=== PATIENT | male | born 1955 | race Caucasian/White ===

== ENCOUNTER 2016-10-15 07:16 | Inpatient (IN) | payer SELFPAY ==
[2016-10-15] VITALS (13 sets, daily range): BP systolic 114–154; BP diastolic 68–87; PULSE 64–101; RESP 15–20; TEMP 97.9–98.2; O2SAT 96–100
[~2016-10-15] VITALS: Ht 198.1 cm; Wt 82.0 kg
[~2016-10-15 07:16] MED LIST: AMIO200T PO; APIX5TAB PO; FURO1TAB93 PO; HYDR-3129 PO; METO50TA PO; RAMI2.5C29 PO; SYMB160A INH; TIOT18I INH
[2016-10-15] MEDS ORDERED: APIX5TAB PO (07:41)
[2016-10-15] MEDS ORDERED: DIGO0.12 PO (07:41)
[2016-10-15] MEDS ORDERED: FURO1TAB60 PO (07:41)
[2016-10-15] MEDS ORDERED: RAMI2.5C PO (07:41)
[2016-10-15] MEDS ORDERED: METO100T PO (07:41)
[2016-10-15] MEDS ORDERED: ASPI325T PO (07:41)
[2016-10-15] MEDS ORDERED: SODIUM CHLORIDE 0.9% FLUSH 10 ML FLUSH IVF PRN (07:45)
--- NOTE | 2016-10-15 08:07 | RADRPT ---
EXAM DATE/TIME: 10/15/2016 07:43 [place] COMPARISON: CHEST SINGLE AP, January 12, 2014, 13:33. INDICATIONS : Heart paplpitations for 3 days. Minor left chest pain. MEDICAL HISTORY : Cardiovascular disease. SURGICAL HISTORY : Defibrilator. ENCOUNTER: Subsequent ACUITY: 3 days PAIN SCORE: 1/10 LOCATION: Left middle chest FINDINGS: There is a transvenous pacer in good position. The heart is normal in size. There are chronic appeari ng interstitial changes within the pulmonary parenchyma. The examination appears improved compared to previous date 01/12/14. The osseous structures demonstrate degenerative changes in a.c. joints bilaterally. CONCLUSION: 1. Chronic appearing interstitial changes. No acute abnormality. Jakob Aden MD on October 15, 2016 at 8:04 Board Certified Radiologist. This report was verified electronically.
[2016-10-15 08:16] LABS: AUTOMATED NEUTROPHIL # 4.6 TH/MM3 (1.8-7.7); BASOPHIL # 0.1 TH/MM3 (0-0.2); BASOPHIL % 1.1 % (0.0-2.0); EOSINOPHIL # 0.5 TH/MM3 (0-0.4); EOSINOPHIL % 6.8 % (0.0-4.0); HEMATOCRIT 41.8 % (39.0-51.0); HEMO FLAGS DIFF FINAL; LYMPH % 21.1 % (9.0-44.0); LYMPHOCYTE # 1.6 TH/MM3 (1.0-4.8); MEAN CELL VOLUME 96.7 FL (80.0-100.0); MEAN CORPUSCULAR HGB CONC 33.1 % (32.0-36.0); MONO % 10.6 % (0.0-8.0); NEUT % 60.4 % (16.0-70.0); PLATELET COUNT 198 TH/MM3 (150-450); RED BLOOD COUNT 4.32 MIL/MM3 (4.50-5.90); RED CELL DISTRIBUTION WIDTH 14.5 % (11.6-17.2); WHITE BLOOD COUNT 7.6 TH/MM3 (4.0-11.0)
[2016-10-15 08:34] LABS: ANION GAP 9 MEQ/L (5-15); BICARBONATE 24.8 MEQ/L (21.0-32.0); BLOOD UREA NITROGEN 23 MG/DL (7-18); CHLORIDE 99 MEQ/L (98-107); GLOMERULAR FILTRATION RATE 39 ML/MIN (>89); MAGNESIUM 2.3 MG/DL (1.5-2.5); POTASSIUM 4.3 MEQ/L (3.5-5.1); SODIUM (NA) 133 MEQ/L (136-145)
[2016-10-15 08:37] LABS: CREATINE KINASE 114 U/L (39-308)
[2016-10-15 08:41] LABS: APTT (PATIENT) 29.9 SEC (24.3-30.1); INTERNATIONAL NORMALIZED RATIO 0.9 RATIO
--- NOTE | 2016-10-15 09:20 | PD ---
HPI Chief Complaint: Cardiac Complaint Time Seen by Provider: 07:32 Travel History International Travel<30 days: No Contact w/Intl Traveler<30days: No Traveled to known affect area: No History of Present Illness HPI 60-year-old male came to the emergency room with history of palpitations and not feeling well for past 4-5 days. Patient says that he was trying to tolerate it up until last night when the symptoms got worse and that's when he decided to come to the emergency room this morning. He has history of atrial fibrillation and has an AICD put in [address] Broderick who follows him up for that. He saw him in the beginning of this month when everything was fine. Patient was started on digoxin and Eliquis in August. No history of chest pain. No history of shortness of breath. He does not appear to be in significant distress. However he does say that he is just not feeling well. He is a smoker and alcohol drinker. PFSH Past Medical History Narrative Medical List of his past medical, surgical, social and family history is reviewed from the nursing note. Hx Anticoagulant Therapy: Yes (ELIQUIS) Heart Rhythm Problems: Yes (A-FIB /A-FLUTTER ) Cancer: No Cardiovascular Problems: Yes Diminished Hearing: No Endocrine: No Genitourinary: No Immune Disorder: No Musculoskeletal: No Neurologic: No Psychiatric: No Reproductive: No Respiratory: No Tetanus Vaccination: Unknown Influenza Vaccination: No Past Surgical History Abdominal Surgery: Yes (appendectomy) AICD: No Appendectomy: Yes Arteriovenous Shunt: No Cardiac Surgery: Yes (CARDIAC ABLATION ) Ear Surgery: No Endocrine Surgery: No Eye Surgery: No Genitourinary Surgery: No Gynecologic Surgery: No Insulin Pump: No Joint Replacement: No Oral Surgery: No Pacemaker: No Thoracic Surgery: No Social History Alcohol Use: Yes Tobacco Use: Yes (1/2 PPD ) Substance Use: Yes (POT ) Allergies-Medications (Allergen,Severity, Reaction): Coded Allergies: No Known Allergies (Unverified , 10/15/16) Comments No known drug allergies. Reported Meds & Prescriptions Reported Meds & Active Scripts Active Reported Digoxin 0.125 Mg Tab 0.125 Mg PO DAILY Ramipril 2.5 Mg Cap 2.5 Mg PO DAILY Metoprolol Tartrate 100 Mg Tab 100 Mg PO BID Lasix (Furosemide) 40 Mg Tab 40 Mg PO BID Eliquis (Apixaban) 5 Mg Tab 5 Mg PO BID Aspirin 325 Mg Tab 325 Mg PO DAILY Narrative Medication List of his home medications reviewed from the nursing note. Review of Systems Except as stated in HPI: all other systems reviewed are Neg Physical Exam Narrative GENERAL: [-] SKIN: Focused skin assessment warm/dry. HEAD: Atraumatic. Normocephalic. EYES: Pupils equal and round. No scleral icterus. No injection or drainage. ENT: No nasal bleeding or discharge. Mucous membranes pink and moist. NECK: Trachea midline. No JVD. CARDIOVASCULAR: Irregularly irregular rate and rhythm. No murmur appreciated. RESPIRATORY: No accessory muscle use. Clear to auscultation. Breath sounds equal bilaterally. GASTROINTESTINAL: Abdomen soft, non-tender, nondistended. Hepatic and splenic margins not palpable. MUSCULOSKELETAL: No obvious deformities. No clubbing. No cyanosis. No edema. NEUROLOGICAL: Awake and alert. No obvious cranial nerve deficits. Motor grossly within normal limits. Normal speech. PSYCHIATRIC: Appropriate mood and affect; insight and judgment normal. Data Data Last Documented VS Vital Signs Date Time Temp Pulse Resp B/P (MAP) Pulse Ox O2 Delivery O2 Flow Rate FiO2 10/15/16 08:45 72 18 123/68 (86) 100 Nasal Cannula 2.00 10/15/16 07:19 97.9 Orders Orders Electrocardiogram (10/15/16 07:32) Basic Metabolic Panel (Bmp) (10/15/16 07:32) Ckmb (Isoenzyme) Profile (10/15/16 07:32) Complete Blood Count With Diff (10/15/16 07:32) Magnesium (Mg) (10/15/16 07:32) Prothrombin Time / Inr (Pt) (10/15/16 07:32) Act Partial Throm Time (Ptt) (10/15/16 07:32) Troponin I (10/15/16 07:32) Chest, Single Ap (10/15/16 07:32) Ecg Monitoring (10/15/16 07:32) Bilateral Bp Monitoring (10/15/16 07:32) Iv Access Insert/Monitor (10/15/16 07:32) Oximetry (10/15/16 07:32) Oxygen Administration (10/15/16 07:32) Sodium Chloride 0.9% Flush (Ns Flush) (10/15/16 07:45) Digoxin (10/15/16 07:40) CKMB (10/15/16 07:35) CKMB% (10/15/16 07:35) Consult Cardiology (10/15/16 ) Admit Order (Ed Use Only) (10/15/16 09:32) Labs Laboratory Tests Test 10/15/16 07:32 10/15/16 07:35 White Blood Count 7.6 TH/MM3 Red Blood Count 4.32 MIL/MM3 Hemoglobin 13.8 GM/DL Hematocrit 41.8 % Mean Corpuscular Volume 96.7 FL Mean Corpuscular Hemoglobin 32.0 PG Mean Corpuscular Hemoglobin Concent 33.1 % Red Cell Distribution Width 14.5 % Platelet Count 198 TH/MM3 Mean Platelet Volume 7.2 FL Neutrophils (%) (Auto) 60.4 % Lymphocytes (%) (Auto) 21.1 % Monocytes (%) (Auto) 10.6 % Eosinophils (%) (Auto) 6.8 % Basophils (%) (Auto) 1.1 % Neutrophils # (Auto) 4.6 TH/MM3 Lymphocytes # (Auto) 1.6 TH/MM3 Monocytes # (Auto) 0.8 TH/MM3 Eosinophils # (Auto) 0.5 TH/MM3 Basophils # (Auto) 0.1 TH/MM3 CBC Comment DIFF FINAL Differential Comment Prothrombin Time 10.0 SEC Prothromb Time International Ratio 0.9 RATIO Activated Partial Thromboplast Time 29.9 SEC Blood Urea Nitrogen 23 MG/DL Creatinine 1.81 MG/DL Random Glucose 81 MG/DL Calcium Level 8.9 MG/DL Magnesium Level 2.3 MG/DL Sodium Level 133 MEQ/L Potassium Level 4.3 MEQ/L Chloride Level 99 MEQ/L Carbon Dioxide Level 24.8 MEQ/L Anion Gap 9 MEQ/L Estimat Glomerular Filtration Rate 39 ML/MIN Total Creatine Kinase 114 U/L Creatine Kinase MB 3.0 NG/ML Troponin I LESS THAN 0.02 NG/ML Digoxin Level 1.3 NG/ML [facility] Medical Decision Making Medical Screen Exam Complete: Yes Emergency Medical Condition: Yes Medical Record Reviewed: Yes Interpretation(s) Twelve-lead EKG was reviewed by me. Atrial fibrillation with flutter, normal axis, old anterior OR. Heart rate of 78 bpm. Differential Diagnosis Electrolyte abnormality, congestive heart failure, ACS Narrative Course 9:29 AM blood test results of back and they are within acceptable limit except for the creatinine which is elevated. I discussed with Dr. Broderick who has agreed to admit the patient. He'll consult on the patient. In my opinion patient needs his device to be interrogated to see if he was having any V. tach or A. fib with RVR. I let the patient know about the plan and he is agreeable to it. Procedures EKG Prior to Arrival: Yes Physician Communication Physician Communication Dr. Broderick Diagnosis Primary Impression: Palpitations Additional Impressions: Atrial fibrillation and flutter Generalized weakness Admitting Information Admitting Physician Requests: Observation Osorio Cavazos MD Oct 15, 2016 09:20
--- NOTE | 2016-10-15 10:22 | HHI.HP ---
HPI Service Family Medicine Primary Care Physician No Primary Care Physician Admission Diagnosis generalized weakness, A. fib with flutter, palpitation Diagnoses: Chief Complaint: "Heart's been acting kind of crazy" International Travel<30 Days: No Contact w/Intl Traveler<30days: No Known Affected Area: No History of Present Illness Mr. Ngo is a 60-year-old white male with a past medical history of atrial fibrillation presenting to the ED for heart palpitations. He states that a few days ago his heart started racing and skipping a beat. He also started feeling run down and not like himself. He felt like he had a cold. Last night his still comes had gotten worse. He felt like his heart was racing on and off. He states that he is used to his heart beating funny, but this felt different. Therefore, he decided to come to the ED. He experienced this type of heart problem back in August when he was hyponatremic. He visited his combination saw operator, Dr. Broderick, who put him on digoxin and Eliquis. He was initially diagnosed with atrial fibrillation 3 years ago and had an ablation done. They also implanted a defibrillator. His defibrillator has never gone off. No prior MIs. No CP, no SOB, has been feeling fatigued, no loss of appetite. No fever/chills (Noemi Valero MD R1) Review of Systems Constitutional: DENIES: Weight loss, Change in appetite, Night Sweats Eyes: DENIES: Blurred vision Ears, nose, mouth, throat: DENIES: Vertigo Respiratory: DENIES: Shortness of breath Cardiovascular: DENIES: Chest pain Gastrointestinal: DENIES: Abdominal pain, Black stools, Bloody stools Genitourinary: DENIES: Urinary frequency, Urgency Musculoskeletal: DENIES: Joint pain, Muscle aches Integumentary: DENIES: Rash Immunologic/allergic: DENIES: Eczema Neurologic: DENIES: Localized weakness, Paresthesias Psychiatric: DENIES: Depression, Hallucinations (Noemi Valero MD R1) Past Family Social History Past Medical History Atrial fibrillation- diagnosed 3 years ago Past Surgical History Ablation and AICD-3 years ago knee surgery appendectomy Reported Medications Reported Meds & Active Scripts Active Reported Digoxin 0.125 Mg Tab 0.125 Mg PO DAILY Ramipril 2.5 Mg Cap 2.5 Mg PO DAILY Metoprolol Tartrate 100 Mg Tab 100 Mg PO BID Lasix (Furosemide) 40 Mg Tab 40 Mg PO BID Eliquis (Apixaban) 5 Mg Tab 5 Mg PO BID Aspirin 325 Mg Tab 325 Mg PO DAILY (Noemi Valero MD R1) Allergies: Coded Allergies: No Known Allergies (Unverified , 10/15/16) Active Ordered Medications Current Medications Medications (Trade) Dose Ordered Sig/Mishel Route Start Time Stop Time Status Last Admin (NS Flush) 2 ml UNSCH PRN IVF 10/15/16 07:45 Family History Mother- HTN Father- HTN Older brother- quadruple bypass Social History lives in [place] with girlfriend Employment: purchaser automotive parts Alcohol: 3-4 beers a day, thought about cutting down, no withdrawal before Cigarettes: 1/2 ppd for 40 yrs, thought about quitting Drugs: smokes marijuana occasionally (Noemi Valero MD R1) Physical Exam Vital Signs Vital Signs Date Time Temp Pulse Resp B/P (MAP) Pulse Ox O2 Delivery O2 Flow Rate FiO2 10/15/16 07:45 67 17 126/79 (95) 100 Nasal Cannula 2.00 10/15/16 07:44 76 126/79 (95) 10/15/16 07:44 98 Nasal Cannula 2.00 10/15/16 07:24 149/87 (107) 10/15/16 07:24 80 15 149/87 (107) 98 Room Air 10/15/16 07:19 97.9 84 15 154/74 (100) 98 Physical Exam GENERAL: This is a well-nourished, well-developed patient, laying in bed, in no apparent distress. SKIN: No rashes, ecchymoses or lesions. Cool and dry. HEAD: Atraumatic. Normocephalic. No temporal or scalp tenderness. EYES: Pupils equal round and reactive. Extraocular motions intact. No scleral icterus. No injection or drainage. ENT: Nose without bleeding, purulent drainage or septal hematoma. Throat without erythema, tonsillar hypertrophy or exudate. Uvula midline. Airway patent. NECK: Trachea midline. No JVD or lymphadenopathy. Supple, nontender, no meningeal signs. CARDIOVASCULAR: Irregular rate and rhythm without murmurs, gallops, or rubs. RESPIRATORY: Expiratory wheezing. Breath sounds equal bilaterally. No rales, or rhonchi. GASTROINTESTINAL: Abdomen soft, non-tender, nondistended. No hepato-splenomegaly , or palpable masses. No guarding. MUSCULOSKELETAL: Extremities without clubbing, cyanosis, or edema. No joint tenderness, effusion, or edema noted. No calf tenderness. Negative Homans sign bilaterally. NEUROLOGICAL: Awake and alert. Cranial nerves II through XII intact. Motor and sensory grossly within normal limits. Five out of 5 muscle strength in all muscle groups. Normal speech. Laboratory Laboratory Tests Test 10/15/16 07:32 10/15/16 07:35 White Blood Count 7.6 Red Blood Count 4.32 Hemoglobin 13.8 Hematocrit 41.8 Mean Corpuscular Volume 96.7 Mean Corpuscular Hemoglobin 32.0 Mean Corpuscular Hemoglobin Concent 33.1 Red Cell Distribution Width 14.5 Platelet Count 198 Mean Platelet Volume 7.2 Neutrophils (%) (Auto) 60.4 Lymphocytes (%) (Auto) 21.1 Monocytes (%) (Auto) 10.6 Eosinophils (%) (Auto) 6.8 Basophils (%) (Auto) 1.1 Neutrophils # (Auto) 4.6 Lymphocytes # (Auto) 1.6 Monocytes # (Auto) 0.8 Eosinophils # (Auto) 0.5 Basophils # (Auto) 0.1 CBC Comment DIFF FINAL Differential Comment Prothrombin Time 10.0 Prothromb Time International Ratio 0.9 Activated Partial Thromboplast Time 29.9 Blood Urea Nitrogen 23 Creatinine 1.81 Random Glucose 81 Calcium Level 8.9 Magnesium Level 2.3 Sodium Level 133 Potassium Level 4.3 Chloride Level 99 Carbon Dioxide Level 24.8 Anion Gap 9 Estimat Glomerular Filtration Rate 39 Total Creatine Kinase 114 Creatine Kinase MB 3.0 Troponin I LESS THAN 0.02 Digoxin Level 1.3 (Noemi Valero MD R1) Result Diagram: 10/15/16 0732 10/15/16 0735 Caprini VTE Risk Assessment Caprini VTE Risk Assessment: No/Low Risk (score <= 1) Caprini Risk Assessment Model Point Value = 1 Point Value = 2 Point Value = 3 Point Value = 5 Age 41-60 Minor surgery BMI > 25 kg/m2 Swollen legs Varicose veins or History of unexplained or recurrent spontaneous Oral contraceptives or hormone replacement Sepsis (< 1 month) Serious lung disease, including pneumonia (< 1 month) Abnormal pulmonary function Acute myocardial infarction Congestive heart failure (< 1 month) History of inflammatory bowel disease Medical patient at bed rest Age 61-74 Arthroscopic surgery Major open surgery (> 45 min) Laparoscopic surgery (> 45 min) Malignancy Confined to bed (> 72 hours) Immobilizing plaster cast Central venous access Age >= 75 History of VTE Family history of VTE Factor V Leiden Prothrombin [id number] Lupus anticoagulant Anticardiolipin antibodies Elevated serum homocysteine Heparin-induced thrombocytopenia Other congenital or acquired thrombophilia Stroke (< 1 month) Elective arthroplasty Hip, pelvis, or leg fracture Acute spinal cord injury (< 1 month) Prophylaxis Regimen Total Risk Factor Score Risk Level Prophylaxis Regimen 0-1 Low Early ambulation 2 Moderate Order ONE of the following: *Sequential Compression Device (SCD) *Heparin 5000 units SQ BID 3-4 Higher Order ONE of the following medications: *Heparin 5000 units SQ TID *Enoxaparin/Lovenox 40 mg SQ daily (WT < 150 kg, CrCl > 30 mL/min) *Enoxaparin/Lovenox 30 mg SQ daily (WT < 150 kg, CrCl > 10-29 mL/min) *Enoxaparin/Lovenox 30 mg SQ BID (WT < 150 kg, CrCl > 30 mL/min) AND/OR *Sequential Compression Device (SCD) 5 or more Highest Order ONE of the following medications: *Heparin 5000 units SQ TID (Preferred with Epidurals) *Enoxaparin/Lovenox 40 mg SQ daily (WT < 150 kg, CrCl > 30 mL/min) *Enoxaparin/Lovenox 30 mg SQ daily (WT < 150 kg, CrCl > 10-29 mL/min) *Enoxaparin/Lovenox 30 mg SQ BID (WT < 150 kg, CrCl > 30 mL/min) AND *Sequential Compression Device (SCD) (Noemi Valero MD R1) Assessment and Plan Assessment and Plan Mr. Ngo is a 60-year-old white male with a past medical history of atrial fibrillation presenting to the ED for heart palpitations. EKG done in the ED showed atrial fibrillation with flutter with a heart rate of 78 bpm. Admitting for observation. Code Status Full code Discussed Condition With Dr. Sequeira and Dr. Soto (Noemi Valero MD R1) Attending Attestation The patient has been seen and examined. The chart and all resident notes have been reviewed. I agree that inpatient care is appropriate and that a two midnight stay is expected for the reasons documented in the resident history and physical. I have discussed this with the resident and certify the resident s order for inpatient admission. (Leanna Soto MD) Problem List: (1) Atrial fibrillation and flutter ICD Codes: I48.91 - Unspecified atrial fibrillation; I48.92 - Unspecified atrial flutter Status: Acute Plan: EKG and ED showed atrial fibrillation with flutter, rate of 78 bpm -Pacemaker investigation -Consult cardiology, appreciate recommendations -Continue at home digoxin 0.125 mg by mouth daily -Continue at home metoprolol 100 mg by mouth twice a day -Continue at home aspirin 325 mg by mouth daily -Held at home Eliquis (2) CHF (congestive heart failure) ICD Codes: I50.9 - CHF (congestive heart failure) Status: Chronic Plan: -Continue at home Ramipril 2.5 mg by mouth daily -Hold at home furosemide (3) Chronic kidney disease ICD Codes: N18.9 - Chronic kidney disease, unspecified Status: Chronic Plan: BUN and Creatinine elevated on admission. GFR 39. Documented at Stage 3 since 12/2013. -Hold Lasix (4) FEN Status: Acute Plan: Fluids: Oral hydration Electrolytes: Monitor and replete as needed Nutrition: Heart healthy diet DVT prophylaxis: SCDs Pain management: Tylenol as needed (Noemi Valero MD R1) Physician Certification 2 Midnight Certification Type: Admission for Inpatient Services Order for Inpatient Services The services are ordered in accordance with Medicare regulations or non- Medicare payer requirements, as applicable. In the case of services not specified as inpatient-only, they are appropriately provided as inpatient services in accordance with the 2-midnight benchmark. Estimated LOS (days): 2 days is the estimated time the patient will need to remain in the hospital, assuming treatment plan goals are met and no additional complications. Post-Hospital Plan: Home (Noemi Valero MD R1) Problem Qualifiers (1) CHF (congestive heart failure): Qualified Codes: I50.9 - Heart failure, unspecified (2) Chronic kidney disease: Qualified Codes: N18.3 - Chronic kidney disease, stage 3 (moderate) Noemi Valero MD R1 Oct 15, 2016 10:22 Leanna Soto MD Oct 19, 2016 08:50
[2016-10-15] MEDS ORDERED: ACETAMINOPHEN 325 MG TAB PO PRN (10:30)
[2016-10-15] MEDS ORDERED: SODIUM CHLORIDE 0.9% FLUSH 10 ML FLUSH IV FLUSH PRN (10:30)
[2016-10-15] MEDS ORDERED: ONDANSETRON HCL 4 MG/2 ML VIAL IV PRN (10:30)
[2016-10-15] MEDS ORDERED: RESP: ALBUTEROL 2.5 MG/3 ML NEB (PRN) NEB (10:45)
--- NOTE | 2016-10-15 11:06 | EKG ---
Date Performed: 10/15/2016 Time Performed: 07:29:19 PTAGE: 60 years EKG: ATRIAL FLUTTER/TACHYCARDIA ABNORMAL RHYTHM ECG PREVIOUS TRACING : 01/13/2014 05.30 Compared to previous tracing, atrial tachycardia has replac ed Sinus rhythm , T wave inversion in V1 and V2 is no longer evident. DOCTOR: Rebel Ye Interpretating Date/Time 10/15/2016 11:05:35
[2016-10-15] MEDS: RESP: ALBUTEROL 2.5 MG/IPRATROPIUM 0.5 MG NEB (SCH) NEB ×2 (12:00→19:36)
[2016-10-15] MEDS ORDERED: FUROSEMIDE 40 MG TAB PO SCH (21:00)
[2016-10-15 21:11] LABS: HDL CHOLESTEROL 99.3 MG/DL (40.0-60.0); LDL CHOLESTEROL 27 MG/DL (0-99)
[2016-10-15] MEDS: METOPROLOL TARTRATE 100 MG TAB PO SCH (21:36)
[2016-10-15] MEDS: SODIUM CHLORIDE 0.9% FLUSH 10 ML FLUSH IV FLUSH SCH (21:36)
--- NOTE | 2016-10-15 21:58 | HHI.FPPN ---
Subjective Subjective Patient seen and examined. Case reviewed and discussed Please refer to resident H&P for further details regarding HPI, ROS, PMH, SurgHx , FH and SocHx In summary, patient is a 60yoM with chronic afib s/p PM placement by Dr. Broderick in 2013 Patient reports he was in his usual state of health when he noted progressive fatigue and palpitations over the last 4 days He was prompted to come to the ED when this continued to worsen He denies chest pain or shortness of breath in the ED Family is at the bedside [facility] Objective Objective Last Impressions Chest X-Ray 10/15/16 0732 Signed Impressions: Service Date/Time: , October 15, 2016 07:43 - CONCLUSION: 1. Chronic appearing interstitial changes. No acute abnormality. Jakob Aden MD Laboratory Tests - Abnormals Test 10/15/16 07:32 10/15/16 07:35 10/15/16 14:44 10/15/16 20:13 Red Blood Count 4.32 MIL/MM3 Monocytes (%) (Auto) 10.6 % Eosinophils (%) (Auto) 6.8 % Eosinophils # (Auto) 0.5 TH/MM3 Blood Urea Nitrogen 23 MG/DL Creatinine 1.81 MG/DL Sodium Level 133 MEQ/L Estimat Glomerular Filtration Rate 39 ML/MIN Troponin I LESS THAN 0.02 NG/ML LESS THAN 0.02 NG/ML LESS THAN 0.02 NG/ML HDL Cholesterol 99.3 MG/DL Vital Signs 10/15/16 10/15/16 10/15/16 10/15/16 07:19 07:24 07:24 07:25 Temp 97.9 Pulse 84 80 Resp 15 15 B/P (MAP) 154/74 (100) 149/87 (107) 149/87 (107) Pulse Ox 98 98 O2 Delivery Room Air Room Air 10/15/16 10/15/16 10/15/16 10/15/16 07:44 07:44 07:45 08:45 Pulse 76 67 72 Resp 17 18 B/P (MAP) 126/79 (95) 126/79 (95) 123/68 (86) Pulse Ox 98 100 100 O2 Delivery Nasal Cannula Nasal Cannula Nasal Cannula O2 Flow Rate 2.00 2.00 2.00 10/15/16 10/15/16 10/15/16 10/15/16 09:45 13:05 13:40 16:05 Temp 98.2 98.2 Pulse 66 64 69 69 Resp 20 19 18 B/P (MAP) 132/71 (91) 121/68 (85) 117/72 (87) Pulse Ox 100 97 O2 Delivery Nasal Cannula O2 Flow Rate 2.00 10/15/16 10/15/16 10/15/16 16:10 19:39 21:08 Temp 98.2 Pulse 69 101 Resp 18 B/P (MAP) 114/71 (85) Pulse Ox 96 96 Physical exam GENERAL: Thin male, sitting up in bed SKIN: Warm and dry. No rashes HEAD: Normocephalic. AT EYES: No scleral icterus. No injection or drainage. ENT: OP clear. MM slightly dry NECK: Supple, trachea midline. No JVD or lymphadenopathy. CARDIOVASCULAR: Irregularly irregular rhythm, rate controlled, without murmurs, gallops, or rubs. PM over anterior chest, no erythema. RESPIRATORY: Breath sounds equal bilaterally there is bibasilar crackles, prolonged expiration. No accessory muscle use. GASTROINTESTINAL: Abdomen soft, non-tender, nondistended. Normal active BS. No rebound. MUSCULOSKELETAL: No cyanosis, or edema. No calf tenderness. BACK: Nontender without obvious deformity. No CVA tenderness. NEURO: Awake and alert. Normal speech. CN grossly intact. MAEW Assessment Assessment 60yoM admitted with: Weakness, palpitations with hx ICD placement Acute on chronic kidney disease Tobacco use HTN COPD PLAN PLAN Device Interrogation ED physician spoke with Dr. Broderick, will place consult for expertise Trend Cr, BMP TSH, electrolytes 2 echo ACS r/o Counseled on tobacco use Breathing tx Resume home meds as appropriate CIWA PT Patient seen and examined. Case reviewed and discussed Agree with plan of care as discussed with me and documented in the resident note. Leanna Soto MD Oct 15, 2016 21:58
[2016-10-16] VITALS (13 sets, daily range): BP systolic 108–130; BP diastolic 55–96; PULSE 61–125; RESP 14–18; TEMP 97.8–98.6; O2SAT 96–98
[2016-10-16] MEDS: RESP: ALBUTEROL 2.5 MG/IPRATROPIUM 0.5 MG NEB (SCH) NEB ×4 (08:07→19:44)
[2016-10-16] MEDS ORDERED: ASPIRIN 325 MG TAB PO SCH (09:00)
[2016-10-16] MEDS: DIGOXIN 0.125 MG TAB PO SCH (09:24)
[2016-10-16] MEDS: RAMIPRIL 2.5 MG CAP PO SCH (09:24)
[2016-10-16] MEDS: METOPROLOL TARTRATE 100 MG TAB PO SCH ×2 (09:24→21:39)
[2016-10-16] MEDS: SODIUM CHLORIDE 0.9% FLUSH 10 ML FLUSH IV FLUSH SCH ×2 (09:24→21:39)
--- NOTE | 2016-10-16 10:55 | HHI.FPPN ---
Subjective Remarks Patient states that he is doing well this morning. He had just gotten his AICD investigation. He said that the investigation and the tests made him feel antsy. He is still feeling palpitations. However, no chest pain, no shortness of breath, no abdominal pain, no nausea or vomiting, no fever or chills. He refused labs this morning. (Noemi Valero MD R1) Objective Vitals Vital Signs Date Time Temp Pulse Resp B/P (MAP) Pulse Ox O2 Delivery O2 Flow Rate FiO2 10/16/16 08:39 98.3 104 16 130/96 (107) 96 10/16/16 08:10 97 21 10/16/16 04:17 75 10/16/16 03:16 98.4 98 18 115/70 (85) 98 10/16/16 00:00 61 10/15/16 21:08 98.2 101 18 114/71 (85) 96 10/15/16 20:05 85 10/15/16 19:39 96 10/15/16 16:10 69 10/15/16 16:05 98.2 69 18 117/72 (87) 97 10/15/16 13:40 98.2 69 19 121/68 (85) 10/15/16 13:05 64 (Noemi Valero MD R1) Result Diagram: 10/15/16 0732 10/15/16 0735 Imaging Last Impressions Chest X-Ray 10/15/16 0732 Signed Impressions: Service Date/Time: September 07:43 - CONCLUSION: 1. Chronic appearing interstitial changes. No acute abnormality. Jakob Aden MD Objective Remarks GENERAL: Well-nourished, well-developed patient. Laying in bed SKIN: Warm and dry. HEAD: Normocephalic. EYES: No scleral icterus. No injection or drainage. CARDIOVASCULAR: Irregular rate and rhythm without murmurs, gallops, or rubs. RESPIRATORY: Breath sounds equal bilaterally. No accessory muscle use. Course breath sounds. Soft wheezes diffusely. GASTROINTESTINAL: Abdomen soft, non-tender, nondistended. EXTREMITIES: No cyanosis, or edema. NEUROLOGICAL: Awake, alert. Non-focal. (Noemi Valero MD R1) A/P Assessment and Plan Mr. Ngo is a 60-year-old white male with a past medical history of atrial fibrillation presenting to the ED for heart palpitations. EKG done in the ED showed atrial fibrillation with flutter with a heart rate of 78 bpm. Admitting for observation. (Noemi Valero MD R1) Attending Attestation Patient seen and examined. Case reviewed and discussed Agree with plan of care as discussed with me and documented in the resident note. (Leanna Soto MD) Problem List: (1) Atrial fibrillation and flutter ICD Codes: I48.91 - Unspecified atrial fibrillation; I48.92 - Unspecified atrial flutter Status: Acute Plan: EKG and ED showed atrial fibrillation with flutter, rate of 78 bpm. Troponins negative x3 -AICD investigation showed no abnormalities -Consult cardiology, appreciate recommendations -Continue at home digoxin 0.125 mg by mouth daily -Continue at home metoprolol 100 mg by mouth twice a day -Continue at home aspirin 325 mg by mouth daily -Held at home Eliquis (2) CHF (congestive heart failure) ICD Codes: I50.9 - CHF (congestive heart failure) Status: Chronic Plan: -Continue at home Ramipril 2.5 mg by mouth daily -Hold at home furosemide (3) Chronic kidney disease ICD Codes: N18.9 - Chronic kidney disease, unspecified Status: Chronic Plan: BUN and Creatinine elevated on admission. GFR 39. Documented at Stage 3 since 12/2013. -Restart Lasix- EF low on previous echo. Needed for CHF (4) FEN Status: Acute Plan: Fluids: Oral hydration Electrolytes: Monitor and replete as needed Nutrition: NPO since midnight DVT prophylaxis: SCDs Pain management: Tylenol as needed (Noemi Valero MD R1) Problem Qualifiers (1) CHF (congestive heart failure): Qualified Codes: I50.9 - Heart failure, unspecified (2) Chronic kidney disease: Qualified Codes: N18.3 - Chronic kidney disease, stage 3 (moderate) Noemi Valero MD R1 Oct 16, 2016 10:55 Leanna Soto MD Oct 19, 2016 08:52
--- NOTE | 2016-10-16 11:48 | EKG ---
Date Performed: 10/15/2016 Time Performed: 19:52:01 PTAGE: 60 years EKG: ATRIAL FLUTTER/TACHYCARDIA ABNORMAL RHYTHM ECG Compared to prior tracing no significant sean nge PREVIOUS TRACING : 10/15/2016 13.45 DOCTOR: Amado Naqvi Interpretating Date/Time 10/16/2016 11:44:03
--- NOTE | 2016-10-16 11:49 | EKG ---
Date Performed: 10/15/2016 Time Performed: 13:45:37 PTAGE: 60 years EKG: ATRIAL FLUTTER/TACHYCARDIA ABNORMAL RHYTHM ECG Compared to prior tracing no significant sean nge PREVIOUS TRACING : 10/15/2016 07.29 DOCTOR: Amado Naqvi Interpretating Date/Time 10/16/2016 11:44:12
[2016-10-16 12:26] LABS: AUTOMATED NEUTROPHIL # 4.9 TH/MM3 (1.8-7.7); BASOPHIL # 0.1 TH/MM3 (0-0.2); BASOPHIL % 0.9 % (0.0-2.0); EOSINOPHIL # 0.3 TH/MM3 (0-0.4); EOSINOPHIL % 4.3 % (0.0-4.0); HEMATOCRIT 42.7 % (39.0-51.0); HEMO FLAGS DIFF FINAL; LYMPH % 17.9 % (9.0-44.0); LYMPHOCYTE # 1.3 TH/MM3 (1.0-4.8); MEAN CELL VOLUME 98.3 FL (80.0-100.0); MEAN CORPUSCULAR HEMOGLOBIN 32.2 PG (27.0-34.0); MEAN CORPUSCULAR HGB CONC 32.7 % (32.0-36.0); MONO % 11.1 % (0.0-8.0); NEUT % 65.8 % (16.0-70.0); PLATELET COUNT 195 TH/MM3 (150-450); RED BLOOD COUNT 4.34 MIL/MM3 (4.50-5.90); RED CELL DISTRIBUTION WIDTH 14.5 % (11.6-17.2); WHITE BLOOD COUNT 7.5 TH/MM3 (4.0-11.0)
[2016-10-16 12:42] LABS: POTASSIUM 4.6 MEQ/L (3.5-5.1)
[2016-10-16 12:54] LABS: FREE T4 1.13 NG/DL (0.76-1.46)
--- NOTE | 2016-10-16 15:44 | ECHRPT ---
Indication: CONCLUSIONS Normal left ventricular size. Wall thickness is normal. The left ventricular systolic function is [id number]-[id number] reduced with an estimated ejection fra ction in the range of 35-40%. The right atrial size is mildly dilated. Echogenic linear structure in the RV suggestivet with a Pacemaker BP: 154 / 74 HR: 101 Rhythm: Sinus MEASUREMENTS (Male / Female) Normal Values Technical Quality:Good 2D ECHO LV Diastolic Diameter PLAX 4.6 cm 4.2 - 5.9 / 3.9 - 5.3 cm LV Systolic Diameter PLAX 3.5 cm IVS Diastolic Thickness 0.9 cm 0.6 - 1.0 / 0.6 - 0.9 cm LVPW Diastolic Thickness 0.8 cm 0.6 - 1.0 / 0.6 - 0.9 cm LV Relative Wall Thickness 0.4 RV Internal Dim ED PLAX 2.5 cm LA Systolic Diameter LX 3.2 cm 3.0 - 4.0 / 2.7 - 3.8 cm M-MODE Aortic Root Diameter MM 3.4 cm AV Cusp Separation MM 2.3 cm DOPPLER Mitral E Point Velocity 90.3 cm/s Mitral A Point Velocity 36.0 cm/s Mitral E to A Ratio 2.5 TR Peak Velocity 225.0 cm/s TR Peak Gradient 20.3 mmHg FINDINGS LEFT VENTRICLE Normal left ventricular size. Wall thickness is normal. The left ventricular systolic function is tgfpfgqd-ko-jwlcxcn reduced with an estimated ejection fra ction in the range of 35-40%. RIGHT VENTRICLE Normal right ventricular size and systolic function. LEFT ATRIUM The left atrial size is normal. RIGHT ATRIUM The right atrial size is mildly dilated. ATRIAL SEPTUM Normal atrial septal thickness without atrial level shunting by limited color doppler interrogation. AORTA The aortic root and proximal ascending aorta are normal in size on limited imaging. MITRAL VALVE Structurally normal mitral valve. No mitral valve stenosis or regurgitation. AORTIC VALVE Trileaflet aortic valve. No aortic valve stenosis or regurgitation. TRICUSPID VALVE Structurally normal tricuspid valve. No tricuspid valve stenosis or regurgitation. PULMONARY VALVE The pulmonary valve is not well visualized. VESSELS The inferior vena cava is normal in size. PERICARDIUM No pericardial effusion. Marco Layton MD (Electronically Signed) Final Date:16 October 2016 15:43
[2016-10-16] MEDS: APIXABAN 5 MG TABLET PO SCH ×2 (16:28→21:39)
[2016-10-16] MEDS: FUROSEMIDE 40 MG TAB PO SCH (21:39)
[2016-10-16] MEDS: DILTIAZEM HCL 60 MG TAB PO SCH (22:39)
--- NOTE | 2016-10-16 23:01 | MB ---
cc: MELONIE EVANS M.D. DATE OF CONSULTATION 10/16/16 REASON FOR CONSULTATION Atrial fibrillation with biventricular response. HISTORY OF PRESENT ILLNESS Mr. Escalante is a 60-year-old gentleman with history of atrial fibrillation. He had previous ablation in 2013. The gentleman was free of arrhythmia. Began with palpitation a couple of weeks ago and shortness of breath. Heart rate difficult to control. The patient decided to come to the emergency room for admission. The chart was reviewed. The patient was evaluated. ALLERGIES None. SOCIAL HISTORY The patient drinks three to four beers a day. Still smoking half a pack of cigarettes a day. FAMILY HISTORY Noncontributory to his current medical condition. MEDICATIONS He is on: 1. Digoxin. 2. Ramipril. 3. Metoprolol. 4. Lasix. 5. Eliquis. 6. Aspirin. REVIEW OF SYSTEMS Currently refers shortness of breath, palpitation but no chest pain or chest discomfort. No fever. PHYSICAL EXAMINATION GENERAL: Alert, fully oriented. VITAL SIGNS: His blood pressure 111/62, pulse 125, respiratory rate 20. LUNGS: Ventilated. CARDIOVASCULAR: S1-S2 tachycardic and irregular. ABDOMEN: Soft. No mass. No bruits. EXTREMITIES: No edema. CARDIOLOGY STUDIES Electrocardiogram atrial fibrillation. LABORATORY DATA Hemoglobin is 14.0, white blood cell 7.5, potassium 4.6, creatinine 1.57, TSH of 1.54, troponin less than 0.02, INR 0.9. ASSESSMENT AND RECOMMENDATIONS Mr. Ngo has atrial fibrillation, very symptomatic, unable to control with medication. Blood pressure is very low. He is already on metoprolol 100 milligrams twice a day and digoxin. Cardizem will be added. My recommendation at this point is electrophysiology study and ablation. The risks, the nature and the benefit of the procedure are clearly stated to him. The risks include pneumothorax, cardiac perforation, stroke and even . He understood and agreed to proceed. I will keep the gentleman n.p.o. after midnight Wednesday, possible ablation Wednesday. Melonie Evans MD HS/EO /10:05 PM /10:50 PM
[2016-10-17] VITALS (11 sets, daily range): BP systolic 102–115; BP diastolic 58–64; PULSE 68–95; RESP 16–20; TEMP 97.5–98.7; O2SAT 95–100
[2016-10-17] MEDS: DILTIAZEM HCL 60 MG TAB PO SCH ×3 (05:57→22:40)
[2016-10-17 06:52] LABS: HEMATOCRIT 39.2 % (39.0-51.0); MEAN CELL VOLUME 97.7 FL (80.0-100.0); MEAN CORPUSCULAR HEMOGLOBIN 32.9 PG (27.0-34.0); MEAN CORPUSCULAR HGB CONC 33.7 % (32.0-36.0); PLATELET COUNT 173 TH/MM3 (150-450); RED BLOOD COUNT 4.01 MIL/MM3 (4.50-5.90); RED CELL DISTRIBUTION WIDTH 14.4 % (11.6-17.2); REVIEW FLAG FINAL; WHITE BLOOD COUNT 8.9 TH/MM3 (4.0-11.0)
[2016-10-17 07:18] LABS: ANION GAP 7 MEQ/L (5-15); AST (GOT) 9 U/L (15-37); BICARBONATE 26.3 MEQ/L (21.0-32.0); BLOOD UREA NITROGEN 26 MG/DL (7-18); CHLORIDE 102 MEQ/L (98-107); GLOMERULAR FILTRATION RATE 42 ML/MIN (>89); SODIUM (NA) 135 MEQ/L (136-145)
[2016-10-17 07:19] LABS: ALT (GPT) 21 U/L (12-78)
[2016-10-17 07:21] LABS: ALKALINE PHOSPHATASE 73 U/L (45-117); TOTAL BILIRUBIN ADULT 0.7 MG/DL (0.2-1.0)
[2016-10-17] MEDS: RESP: ALBUTEROL 2.5 MG/IPRATROPIUM 0.5 MG NEB (SCH) NEB ×2 (07:51→11:11)
[2016-10-17] MEDS: SODIUM CHLORIDE 0.9% FLUSH 10 ML FLUSH IV FLUSH SCH ×2 (09:17→19:59)
[2016-10-17] MEDS: RAMIPRIL 2.5 MG CAP PO SCH (09:18)
[2016-10-17] MEDS: METOPROLOL TARTRATE 100 MG TAB PO SCH ×2 (09:18→19:59)
[2016-10-17] MEDS: FUROSEMIDE 40 MG TAB PO SCH ×2 (09:18→19:59)
[2016-10-17] MEDS: APIXABAN 5 MG TABLET PO SCH ×2 (09:18→19:58)
[2016-10-17] MEDS: DIGOXIN 0.125 MG TAB PO SCH (09:18)
--- NOTE | 2016-10-17 11:36 | HHI.FPPN ---
Subjective Remarks Patient seen and examined this morning. Patient states that he did see the tree faller yesterday evening, and started a new medication. Did have some tachycardia late last night, but better controlled now. Patient denies any other complaints/concerns. No chest pain, shortness of breath, abdominal pain, leg pain or swelling. (Jethro Sequeira MD, R2) Objective Vitals Vital Signs Date Time Temp Pulse Resp B/P (MAP) Pulse Ox O2 Delivery O2 Flow Rate FiO2 10/17/16 10:34 79 10/17/16 07:53 95 21 10/17/16 07:09 97.5 84 19 110/64 (79) 97 10/17/16 04:00 84 10/17/16 03:58 98.2 85 18 115/62 (79) 97 10/17/16 00:00 95 10/16/16 23:31 97.8 95 18 108/55 (72) 97 10/16/16 20:12 97.9 125 14 111/62 (78) 98 10/16/16 20:00 109 10/16/16 19:45 98 10/16/16 16:20 98.6 99 16 114/57 (76) 98 10/16/16 16:04 99 10/16/16 11:54 98.1 75 16 121/68 (85) 96 (Jethro Sequeira MD, R2) Result Diagram: 10/17/16 0620 10/17/16 0620 Objective Remarks GENERAL: Well-nourished, well-developed patient. Laying in bed CARDIOVASCULAR: Irregular rhythm, normal rate without murmurs, gallops, or rubs. RESPIRATORY: No accessory muscle use. Course breath sounds. GASTROINTESTINAL: Abdomen soft, non-tender, nondistended. EXTREMITIES: No cyanosis, or edema. NEUROLOGICAL: Awake, alert. Non-focal. (Jethro Sequeira MD, R2) A/P Assessment and Plan Mr. Ngo is a 60-year-old white male with a past medical history of atrial fibrillation presenting to the ED for heart palpitations. EKG done in the ED showed atrial fibrillation with flutter with a heart rate of 78 bpm. Admitting for observation. Discharge Planning Pending ablation on Wednesday and cardiac recommendations (Jethro Sequeira MD, R2) Attending Attestation Patient seen and examined. Case reviewed and discussed Agree with plan of care as discussed with me and documented in the resident note. (Leanna Soto MD) Problem List: (1) Atrial fibrillation and flutter ICD Codes: I48.91 - Unspecified atrial fibrillation; I48.92 - Unspecified atrial flutter Status: Acute Plan: EKG showed atrial fibrillation with flutter, rate of 78 bpm. Troponins negative x3 AICD investigation showed no abnormalities -Consult cardiology, appreciate recommendations -Started cardizem 60mg q8H -Ablation and EPS study on Wednesday -Digoxin 0.125 mg by mouth daily -Metoprolol 100 mg by mouth twice a day -Ramipril 2.5mg daily -Eliquis 5mg BID (2) CHF (congestive heart failure) ICD Codes: I50.9 - CHF (congestive heart failure) Status: Chronic Plan: Echocardiogram (10/16): EF 35-40% -Continue at home Ramipril 2.5 mg by mouth daily -Continue lasix -Monitor for fluid overload (3) Chronic kidney disease ICD Codes: N18.9 - Chronic kidney disease, unspecified Status: Chronic Plan: BUN and Creatinine elevated on admission. GFR 39. Documented at Stage 3 since 12/2013. -Daily BMP -No IVF due to CHF -Continue lasix, due to CHF and low EF, although may exacerbate kidney disease (4) FEN Status: Acute Plan: Fluids: Oral hydration Electrolytes: Monitor and replete as needed Nutrition: heart healthy diet DVT prophylaxis: SCDs Pain management: Tylenol as needed (Jethro Sequeira MD, R2) Problem Qualifiers (1) CHF (congestive heart failure): Qualified Codes: I50.9 - Heart failure, unspecified (2) Chronic kidney disease: Qualified Codes: N18.3 - Chronic kidney disease, stage 3 (moderate) Jethro Sequeira MD, R2 Oct 17, 2016 11:36 Leanna Soto MD Oct 19, 2016 08:50
[2016-10-18] VITALS (7 sets, daily range): BP systolic 107–120; BP diastolic 57–75; PULSE 53–97; RESP 16–20; TEMP 97.3–98.3; O2SAT 98–100
[2016-10-18] MEDS: DILTIAZEM HCL 60 MG TAB PO SCH ×3 (05:30→21:55)
[2016-10-18] MEDS: RESP: ALBUTEROL 2.5 MG/IPRATROPIUM 0.5 MG NEB (PRN) NEB ×2 (08:20→16:10)
[2016-10-18] MEDS: RAMIPRIL 2.5 MG CAP PO SCH (09:00)
[2016-10-18] MEDS: METOPROLOL TARTRATE 100 MG TAB PO SCH ×2 (09:00→20:27)
[2016-10-18] MEDS: DIGOXIN 0.125 MG TAB PO SCH (09:49)
[2016-10-18] MEDS: APIXABAN 5 MG TABLET PO SCH ×2 (09:49→20:27)
[2016-10-18] MEDS: FUROSEMIDE 40 MG TAB PO SCH ×2 (09:49→20:27)
[2016-10-18] MEDS: SODIUM CHLORIDE 0.9% FLUSH 10 ML FLUSH IV FLUSH SCH ×2 (09:50→20:26)
[2016-10-18 11:04] LABS: BICARBONATE 29.3 MEQ/L (21.0-32.0)
--- NOTE | 2016-10-18 11:22 | HHI.FPPN ---
Subjective Remarks Patient states that he is doing well this morning. He was able to shower last night. He has no complaints or concerns. His heart isn't racing anymore, but he still feels palpitations. No fever or chills, no chest pain, no shortness of breath, abdominal pain, no nausea or vomiting, no diarrhea or constipation. (Noemi Valero MD R1) Objective Vitals Vital Signs Date Time Temp Pulse Resp B/P (MAP) Pulse Ox O2 Delivery O2 Flow Rate FiO2 10/18/16 08:00 77 10/18/16 08:00 97.9 83 16 120/75 (90) 98 10/18/16 04:00 98.1 70 20 110/58 (75) 98 10/18/16 00:00 98.1 78 20 107/57 (74) 98 10/17/16 20:00 98.0 86 20 108/58 (75) 99 10/17/16 20:00 79 10/17/16 16:30 97.7 68 16 108/61 (77) 100 10/17/16 15:40 86 10/17/16 15:36 97.8 82 19 102/58 (73) 96 10/17/16 11:38 98.7 80 20 109/63 (78) 98 I/O 10/17/16 10/17/16 10/17/16 10/18/16 10/18/16 10/18/16 07:00 15:00 23:00 07:00 15:00 23:00 Intake Total 240 ml Balance 240 ml Intake Oral 240 ml # Voids 4 (Noemi Valero MD R1) Result Diagram: 10/17/16 0620 10/18/16 0957 Objective Remarks GENERAL: Well-nourished, well-developed patient. Laying in bed CARDIOVASCULAR: Irregular rhythm, normal rate without murmurs, gallops, or rubs. RESPIRATORY: No accessory muscle use. Course breath sounds. GASTROINTESTINAL: Abdomen soft, non-tender, nondistended. EXTREMITIES: No cyanosis, or edema. NEUROLOGICAL: Awake, alert. Non-focal. (Noemi Valeor MD R1) A/P Assessment and Plan Mr. Ngo is a 60-year-old white male with a past medical history of atrial fibrillation presenting to the ED for heart palpitations. EKG done in the ED showed atrial fibrillation with flutter with a heart rate of 78 bpm. Admitting for observation. Discharge Planning Pending ablation on Wednesday and cardiac recommendations (Noemi Valero MD R1) Attending Attestation Patient seen and examined. Case reviewed and discussed Agree with plan of care as discussed with me and documented in the resident note. (Leanna Soto MD) Problem List: (1) Atrial fibrillation and flutter ICD Codes: I48.91 - Unspecified atrial fibrillation; I48.92 - Unspecified atrial flutter Status: Acute Plan: EKG showed atrial fibrillation with flutter, rate of 78 bpm. Troponins negative x3 AICD investigation showed no abnormalities -Consult cardiology, appreciate recommendations -Started cardizem 60mg q8H -Ablation and EPS study tomorrow -Nothing by mouth after midnight -Digoxin 0.125 mg by mouth daily -Metoprolol 100 mg by mouth twice a day -Ramipril 2.5mg daily -Eliquis 5mg BID (2) CHF (congestive heart failure) ICD Codes: I50.9 - CHF (congestive heart failure) Status: Chronic Plan: Echocardiogram (10/16): EF 35-40% -Continue at home Ramipril 2.5 mg by mouth daily -Continue lasix -Monitor for fluid overload (3) Chronic kidney disease ICD Codes: N18.9 - Chronic kidney disease, unspecified Status: Chronic Plan: BUN and Creatinine elevated on admission. GFR 39. Documented at Stage 3 since 12/2013. -Daily BMP -No IVF due to CHF -Continue lasix, due to CHF and low EF, although may exacerbate kidney disease (4) FEN Status: Acute Plan: Fluids: Oral hydration Electrolytes: Monitor and replete as needed Nutrition: heart healthy diet, nothing by mouth after midnight DVT prophylaxis: SCDs Pain management: Tylenol as needed (Noemi Valero MD R1) Problem Qualifiers (1) CHF (congestive heart failure): Qualified Codes: I50.9 - Heart failure, unspecified (2) Chronic kidney disease: Qualified Codes: N18.3 - Chronic kidney disease, stage 3 (moderate) Noemi Valero MD R1 Oct 18, 2016 11:22 Leanna Soto MD Oct 19, 2016 08:52
[2016-10-19] VITALS (7 sets, daily range): BP systolic 99–132; BP diastolic 55–89; PULSE 53–92; RESP 16–20; TEMP 97.6–98.1; O2SAT 97–100
[2016-10-19] MEDS: DILTIAZEM HCL 60 MG TAB PO SCH ×3 (05:40→21:38)
[2016-10-19 06:51] LABS: BICARBONATE 28.2 MEQ/L (21.0-32.0); POTASSIUM 4.4 MEQ/L (3.5-5.1)
[2016-10-19] MEDS: FUROSEMIDE 40 MG TAB PO SCH ×2 (09:00→21:38)
[2016-10-19] MEDS: RAMIPRIL 2.5 MG CAP PO SCH (09:00)
[2016-10-19] MEDS: METOPROLOL TARTRATE 100 MG TAB PO SCH ×2 (09:00→21:38)
--- NOTE | 2016-10-19 10:49 | HHI.PR ---
Subjective Remarks Feeling ok Objective Vital Signs Date Time Temp Pulse Resp B/P (MAP) Pulse Ox O2 Delivery O2 Flow Rate FiO2 10/19/16 08:03 98.1 55 18 108/57 (74) 99 10/19/16 04:00 98.1 60 20 106/60 (75) 97 10/19/16 03:45 Room Air 10/19/16 00:00 97.8 92 18 122/64 (83) 98 10/19/16 00:00 Room Air 10/18/16 20:03 94 10/18/16 20:00 98.0 97 20 118/65 (82) 99 10/18/16 20:00 Room Air 10/18/16 16:00 97.3 85 16 112/60 (77) 99 10/18/16 12:00 98.3 53 16 108/60 (76) 100 I/O 10/18/16 10/18/16 10/18/16 10/19/16 10/19/16 10/19/16 06:59 14:59 22:59 06:59 14:59 22:59 Intake Total 240 ml 960 ml Balance 240 ml 960 ml Intake Oral 240 ml 960 ml # Voids 4 6 # Bowel Movements 1 Result Diagram: 10/17/16 0620 10/19/16 0524 Imaging Alert, fully oriented Lungs: ventilated Heart: S1, S2 irregular, no gallop Abdomen: soft, no mass Ext: no edema Current Medications Medications (Trade) Dose Ordered Sig/Mishel Route Start Time Stop Time Status Last Admin (NS Flush) 2 ml BID IV FLUSH 10/15/16 21:00 10/18/16 20:26 (NS Flush) 2 ml UNSCH PRN IV FLUSH 10/15/16 10:30 (Tylenol) 650 mg Q6H PRN PO 10/15/16 10:30 (Zofran Inj) 4 mg Q6H PRN IV 10/15/16 10:30 (Lanoxin) 0.125 mg DAILY PO 10/16/16 09:00 10/18/16 09:49 (Lopressor) 100 mg BID PO 10/15/16 21:00 10/18/16 20:27 (Altace) 2.5 mg DAILY PO 10/16/16 09:00 10/18/16 09:00 (Albuterol Neb) 2.5 mg Q2HR NEB PRN NEB 10/15/16 10:45 (Eliquis) 5 mg BID PO 10/16/16 16:00 10/18/16 20:27 (Lasix) 40 mg BID PO 10/16/16 21:00 10/18/16 20:27 (Cardizem) 60 mg Q8HR PO 10/16/16 22:15 10/19/16 05:40 (Duoneb Neb) 1 ampule Q4HR WHILE AWAKE NEB PRN NEB 10/17/16 11:45 10/18/16 16:10 Assessment and Plan Problem List: (1) Atrial fibrillation and flutter ICD Codes: I48.91 - Unspecified atrial fibrillation; I48.92 - Unspecified atrial flutter Status: Chronic Plan: In atrial fibrillation / atrial tach HR control On cardizem, digoxin and metoprolol. Episodes of tachy on activity EPS and ablation scheduled for tomorrow (2) Palpitations ICD Codes: R00.2 - Palpitations Status: Acute Plan: Very symptomatic due to tachycardia Bessie Broderick MD Oct 19, 2016 10:49
--- NOTE | 2016-10-19 13:05 | HHI.FPPN ---
Subjective Remarks Pt seen and examined this morning. No acute events overnight. Pt reports no concerns/complaints this morning. No chest pain. States the palpitations are better after starting the cardizem. He is ready for the procedure to be done. Denies any SOB, abdominal pain, leg pain. (Jethro Sequeira MD, R2) Objective Vitals Vital Signs Date Time Temp Pulse Resp B/P (MAP) Pulse Ox O2 Delivery O2 Flow Rate FiO2 10/19/16 08:03 98.1 55 18 108/57 (74) 99 10/19/16 04:00 98.1 60 20 106/60 (75) 97 10/19/16 03:45 Room Air 10/19/16 00:00 97.8 92 18 122/64 (83) 98 10/19/16 00:00 Room Air 10/18/16 20:03 94 10/18/16 20:00 98.0 97 20 118/65 (82) 99 10/18/16 20:00 Room Air 10/18/16 16:00 97.3 85 16 112/60 (77) 99 I/O 10/18/16 10/18/16 10/18/16 10/19/16 10/19/16 10/19/16 06:59 14:59 22:59 06:59 14:59 22:59 Intake Total 240 ml 960 ml Balance 240 ml 960 ml Intake Oral 240 ml 960 ml # Voids 4 6 # Bowel Movements 1 (Jethro Sequeira MD, R2) Result Diagram: 10/17/16 0620 10/19/16 0524 Objective Remarks GENERAL: Well-nourished, well-developed patient. Sitting up in bed, NAD CARDIOVASCULAR: Irregular rhythm, normal rate without murmurs, gallops, or rubs. RESPIRATORY: No accessory muscle use. Course breath sounds. Occasional wheezes GASTROINTESTINAL: Abdomen soft, non-tender, nondistended. EXTREMITIES: No cyanosis, or edema. NEUROLOGICAL: Awake, alert. Non-focal. (Jethro Sequeira MD, R2) A/P Assessment and Plan Mr. Ngo is a 60-year-old white male with a past medical history of atrial fibrillation admitting for symptomatic palpitations. Discharge Planning Pending ablation tomorrow and cardiac recommendations (Jethro eSqueira MD, R2) Attending Attestation Patient seen and examined. Case reviewed and discussed Agree with plan of care as discussed with me and documented in the resident note. (Leanna Soto MD) Problem List: (1) Atrial fibrillation and flutter ICD Codes: I48.91 - Unspecified atrial fibrillation; I48.92 - Unspecified atrial flutter Status: Chronic Plan: Initial EKG showed atrial fibrillation with flutter, rate of 78 bpm. ACS rule out negative AICD investigation showed no abnormalities -Consult cardiology, appreciate recommendations -Started cardizem 60mg q8H -Ablation and EPS study tomorrow -Nothing by mouth after midnight -Digoxin 0.125 mg by mouth daily -Metoprolol 100 mg by mouth twice a day -Ramipril 2.5mg daily -Eliquis 5mg BID (2) CHF (congestive heart failure) ICD Codes: I50.9 - CHF (congestive heart failure) Status: Chronic Plan: Echocardiogram (10/16): EF 35-40% -Continue at home Ramipril 2.5 mg by mouth daily -Continue lasix -Monitor for fluid overload (3) Chronic kidney disease ICD Codes: N18.9 - Chronic kidney disease, unspecified Status: Chronic Plan: BUN and Creatinine elevated on admission. GFR 39. Documented at Stage 3 since 12/2013. -Daily BMP -No IVF due to CHF -Continue lasix, due to CHF and low EF, although may exacerbate kidney disease (4) FEN Status: Acute Plan: Fluids: Oral hydration Electrolytes: Monitor and replete as needed Nutrition: heart healthy diet, nothing by mouth after midnight DVT prophylaxis: SCDs/Eliquis Pain management: Tylenol as needed (Jethro Sequeira MD, R2) Problem Qualifiers (1) CHF (congestive heart failure): Qualified Codes: I50.9 - Heart failure, unspecified (2) Chronic kidney disease: Qualified Codes: N18.3 - Chronic kidney disease, stage 3 (moderate) Jethro Sequeira MD, R2 Oct 19, 2016 13:05 Leanna Soto MD Oct 19, 2016 16:45
[2016-10-19] MEDS: SODIUM CHLORIDE 0.9% FLUSH 10 ML FLUSH IV FLUSH SCH ×2 (14:46→21:39)
[2016-10-20] VITALS (11 sets, daily range): BP systolic 104–128; BP diastolic 55–76; PULSE 52–84; RESP 18; TEMP 97.3–98.8; O2SAT 96–100
[2016-10-20] MEDS: DILTIAZEM HCL 60 MG TAB PO SCH ×2 (06:09→14:36)
[2016-10-20] MEDS: FUROSEMIDE 40 MG TAB PO SCH ×2 (08:23→20:45)
[2016-10-20] MEDS: METOPROLOL TARTRATE 100 MG TAB PO SCH (08:23)
[2016-10-20] MEDS: RAMIPRIL 2.5 MG CAP PO SCH (08:23)
[2016-10-20] MEDS: SODIUM CHLORIDE 0.9% FLUSH 10 ML FLUSH IV FLUSH SCH ×2 (08:28→20:45)
[2016-10-20 11:18] LABS: BICARBONATE 21.9 MEQ/L (21.0-32.0); POTASSIUM 4.3 MEQ/L (3.5-5.1)
--- NOTE | 2016-10-20 13:30 | HHI.FPPN ---
Subjective Remarks No acute events overnight. He felt some palpitations this morning but is otherwise asymptomatic. No chest pain or shortness of breath. No calf tenderness. No abdominal pain. He is eager to have his procedure done this afternoon. (Francisco J Chavez MD R3) Objective Vitals Vital Signs Date Time Temp Pulse Resp B/P (MAP) Pulse Ox O2 Delivery O2 Flow Rate FiO2 10/20/16 08:03 97.3 72 18 124/71 (88) 98 10/20/16 08:00 96 Room Air 2.00 21 10/20/16 08:00 52 10/20/16 04:00 97.8 67 18 118/59 (78) 97 10/20/16 00:00 98.8 84 18 107/61 (76) 100 10/19/16 20:00 98.0 90 16 132/62 (85) 100 10/19/16 20:00 98.0 89 20 132/89 (103) 99 10/19/16 20:00 Room Air 10/19/16 16:03 97.6 69 18 112/66 (81) 100 I/O 10/19/16 10/19/16 10/19/16 10/20/16 10/20/16 10/20/16 07:00 15:00 23:00 07:00 15:00 23:00 Intake Total 420 ml 480 ml Output Total 950 ml Balance 420 ml -470 ml Intake Oral 420 ml 480 ml Output Urine Total 950 ml # Voids 4 # Bowel Movements 2 1 (Francisco J Chavez MD R3) Result Diagram: 10/17/16 0620 10/20/16 1005 Objective Remarks GENERAL: Sitting up in bed, no distress CARDIOVASCULAR: RRR, no murmurs, rubs, or gallops RESPIRATORY: CTAB GASTROINTESTINAL: Abdomen soft, non-tender, nondistended. EXTREMITIES: No cyanosis, or edema. NEUROLOGICAL: Awake, alert. Non-focal. (Francisco J Chavez MD R3) A/P Assessment and Plan 60-year-old white male with a past medical history of atrial fibrillation admitted for symptomatic palpitations. Discharge Planning Pending cardiac ablation and cariology recommendations. Will need to follow up with cardiology and his PCP after discharge. (Francisco J Chavez MD R3) Attending Attestation Patient seen and examined. Case reviewed and discussed with the resident team Agree with plan of care as discussed with me and documented in the resident note. (Leanna Soto MD) Problem List: (1) Atrial fibrillation and flutter ICD Codes: I48.91 - Unspecified atrial fibrillation; I48.92 - Unspecified atrial flutter Status: Chronic Plan: Initial EKG showed atrial fibrillation with flutter, rate of 78 bpm. ACS rule out negative AICD investigation showed no abnormalities -Consulted cardiology, appreciate recommendations -Started cardizem 60mg q8H -Ablation and EPS study this afternoon -Metoprolol 100 mg by mouth twice a day -Ramipril 2.5mg daily -Eliquis 5mg BID, on hold for procedure (2) CHF (congestive heart failure) ICD Codes: I50.9 - CHF (congestive heart failure) Status: Chronic Plan: Echocardiogram (10/16): EF 35-40% - Continue at home Ramipril 2.5 mg by mouth daily - Metoprolol tartrate 100 mg bid - Continue PO Lasix 40 mg bid (3) Chronic kidney disease ICD Codes: N18.9 - Chronic kidney disease, unspecified Status: Chronic Plan: Estimated GFR about 37 with elevated BUN and creatinine. Documented at Stage 3 since 12/2013. - Avoid nephrotoxic agents and contrast dye if possible - Renally dose medications - Continue Ramipril for renal protection (4) FEN Status: Acute Plan: Fluids: NPO for procedure Electrolytes: Monitor and replace as needed Nutrition: NPO for procedure, then resume heart healthy diet DVT prophylaxis: SCDs/Eliquis on hold for procedure (Francisco J Chavez MD R3) Problem Qualifiers (1) CHF (congestive heart failure): Qualified Codes: I50.9 - Heart failure, unspecified (2) Chronic kidney disease: Qualified Codes: N18.3 - Chronic kidney disease, stage 3 (moderate) Francisco J Chavez MD R3 Oct 20, 2016 13:30 Leanna Soto MD Oct 20, 2016 15:12
[2016-10-20] MEDS ORDERED: HEPARIN-NS/PF INJ 1,500 ML ONE (15:42)
[2016-10-20] MEDS ORDERED: PROTAMINE SULFATE 50 MG/5 ML VIAL ONE (15:45)
[2016-10-20] MEDS ORDERED: LEVOFLOXACIN 500 MG PREMIX INJ 100 ML IV ONE (15:45)
[2016-10-20] MEDS ORDERED: HEPARIN-D5W 25,000 U/250 ML 250 ML ONE (15:45)
[2016-10-20] MEDS ORDERED: fentaNYL CITRATE 250 MCG/5 ML AMP ONE (15:45)
[2016-10-20] MEDS ORDERED: ISOPROTERENOL HCL 1 MG/5 ML AMP ONE (15:45)
[2016-10-20] MEDS ORDERED: HEPARIN SODIUM - IV 10,000 UNITS/10 ML VIAL ONE (15:46)
[2016-10-20] MEDS ORDERED: HYDROmorphone HCL PF 2 MG/ML VIAL ONE (16:39)
[2016-10-20] MEDS ORDERED: BACITRACIN OINT 0.9 GM PKT TOP ONE (17:45)
[2016-10-20] MEDS ORDERED: ATROPINE SULFATE 1 MG/ML VIAL IV PRN (17:45)
[2016-10-20] MEDS ORDERED: oxyCODONE/ACETAMINOPHEN 5 MG/325 MG TAB PO PRN ×2 (17:45)
[2016-10-20] MEDS ORDERED: LIDOCAINE HCL 1% 50 ML VIAL INFIL PRN (17:45)
[2016-10-20] MEDS ORDERED: LORazepam 2 MG/ML VIAL IV PRN (17:45)
[2016-10-20] MEDS ORDERED: SODIUM CHLOR 0.9% 250 ML INJ 250 ML IV PRN (17:45)
[2016-10-20] MEDS ORDERED: ONDANSETRON HCL 4 MG/2 ML VIAL IV PRN (17:45)
[2016-10-20] MEDS ORDERED: METOCLOPRAMIDE HCL 10 MG/2 ML VIAL IV PRN (17:45)
--- NOTE | 2016-10-20 18:24 | CATHPROC ---
R&V HIS Report Study Information Study Number Admission Scheduled Start Study Start [id number] 10/17/2016 10/20/2016 Oct 20 2016 3:13PM Referring Institution Admit Source Facility Department 1 Other [facility] - [address] Sql Developer Physician and Clinical Staff Initial Bessie Siu Instrumentation Technician Shakira Hobbs RCIS Instrumentation Technician Antonina Grimes,RT(R) TECH2 Other Anesthesia, CUSTOMER SERVICE TELLER Recorder Noemi Deshpande,BSRN Recorder Vandana Noonan,ALBARO Scrub Ariel Jacinto,RT(R) Procedures Performed Procedure Location (Site) Vessel Name Ablation Procedure Cardioversion ICE CATHETER INSERT RA Atruim RF Ablation LT. ATRIUM LT. ATRIUM Equipment Time Kitchen Hand Description Size Mfg Part Number Used/Scraped NEEDLE, TRANSSEPTAL NRG 98 15:56 [facility] [id number] Used C1 BIOSENSE SALAS CATHETER, CELSIUS DS, 8MM, F [id number] 17:09 FR 7 Used INC. TYPE QUAD *[id number] [employer]/ EP 15:56 KIT, TRANSDUCER / AFIB [id number] Used PACER [id number] CATHETER, TACTICATH ABLAT BUNDLE 15:56 BUNDLE-[facility] SHENG Used 65 BUNDLE *[id number]- BUNDLE [id number] CATHETER, FR7 OPTIMA SPIRAL 15:56 BUNDLE-[employer]. SHENG FR7 *[id number]- Used BUNDLE BUNDLE [id number] 15:56 BUNDLE-[employer] SHENG CATHETER, JSN, QUAD BUNDLE FR 5 *[id number]- Used BUNDLE [id number] 15:56 BUNDLE-[employer]. SHENG CATHETER, JSN, QUAD BUNDLE FR 5 *[id number]- Used BUNDLE 35545-ASYCIF SET, COOL POINT TUBING 15:56 BUNDLE-[employer]. SHENG *[id number]- Used BUNDLE BUNDLE SHEATH, FR8.5 STEERABLE SM 15:56 BUNDLE-[employer]. SHENG 71CM [id number] Used 71CM BUNDLE COVER, TRANSDUCER CABLE 15:56 [employer] 612-113 Used ACUNAV 15:56 CORDIS/PACER SHEATH, FR10 ISRAEL 11CM FR 10 [id number] Used 15:56 CORDIS/PACER SHEATH, FR9 ISRA[place] 11CM FR 9 [id number] Used [id number] 15:56 ilustrum PACK, CCL CUSTOM * Used *[id number] 15:56 MEDLINE PACER THOMASON, LIMB * 2530 *[id number] Used [id number] 15:56 [facility] MEDICAL SHEATH, FR4.5 PRELUDE 11CM FR 4.5 Used [id number] 15:56 NAMIC TUBING, HIGH PRESSURE 48" 48" Used *[id number] 15:56 NAMIC TUBING, HIGH PRESSURE 48" 48" Used *[id number] 15:56 [place] MEDICAL BLANKET,WARM AIR CCL * Used *[id number] 15:56 [facility] MEDICAL ELECTRODE KIT, OLREE X SURFACE * [id number] Used 15:56 [facility] MEDICAL SHEATH, EPS, FR6 FAST CATH FR 6 [id number] Used 15:56 [facility] MEDICAL SHEATH, EPS, FR7 FAST CATH FR 7 [id number] Used 15:56 [facility] MEDICAL SHEATH, EPS, FR8 FAST CATH FR 8 [id number] Used CATHETER, ACUNAV FR10 ICE [id number] 16:29 DEXTER FR 10 Used (DEXTER) *[id number] [facility] PAD, ELECTROSURGICAL 15:56 * [id number] *[id number] Used SURGICAL GROUNDING (BLUE) History: Allergies Allergy Reaction No Known Allergies Labs Hgb (g/dl) Hct (%) RBC (MIL/MM3) WBC (l/cumm) Platelets (thousands) 11.60-17.00 35.00-51.00 4.00-5.90 4.00-11.00 150.00-450.00 13.0 39 4 8.9 173 Glucose (mg/dl) BUN (mg/dl) Creatinine (mg/dl) BUN:Creatinine (1:x) 74.00-106.00 7.00-18.00 0.50-1.30 10.00-20.00 101 28 1.6 17.5 Na (meq/l) K (meq/l) 136.00-145.00 3.50-5.10 137 4.4 INR (PTT:PT) 0.90-1.10 0.9 Medication Medication Total Dose (Bolus/Oral) Medication Total Dosage/Unit 1% XYLOCAINE 40 mL HEPARIN 84882 units PROTAMINE 50 mg Medications (Bolus/Oral) Medication Time Given Dosage/Unit Administered By Reason 1% XYLOCAINE 10/20/2016 4:20:48 PM 20 mL Anesthesia, CUSTOMER SERVICE TELLER For pain 20 mL 1% XYLOCAINE given in lab by Anesthesia, CUSTOMER SERVICE TELLER in Left Groin via Subcutaneous. Ordered by Bessie Broderick. Reason: For pain. 1% XYLOCAINE 10/20/2016 4:24:39 PM 20 mL Anesthesia, CUSTOMER SERVICE TELLER For pain 20 mL 1% XYLOCAINE given in lab by Anesthesia, CUSTOMER SERVICE TELLER in Right Groin via Subcutaneous. Ordered by Bessie Broderick. Reason: For pain. HEPARIN 10/20/2016 4:32:39 PM 62884 units Anesthesia, CUSTOMER SERVICE TELLER As per physicians ve rbal order 39588 units HEPARIN given in lab by Anesthesia, CUSTOMER SERVICE TELLER in Right Forearm via Peripheral IV. Ordered by Bessie Knox. Reason: As per physicians verbal order. HEPARIN 10/20/2016 4:43:02 PM 2000 units Anesthesia, CUSTOMER SERVICE TELLER As per physicians ve rbal order 2000 units HEPARIN given in lab by Anesthesia, CUSTOMER SERVICE TELLER via Peripheral IV. Ordered by Bessie Broderick. Reas on: As per physicians verbal order. HEPARIN 10/20/2016 5:01:00 PM 2000 units Anesthesia, CUSTOMER SERVICE TELLER As per physicians ve rbal order 2000 units HEPARIN given in lab by Anesthesia, CUSTOMER SERVICE TELLER in Right Forearm via Peripheral IV. Ordered by Bessie Umana. Reason: As per physicians verbal order. PROTAMINE 10/20/2016 5:32:54 PM 40 mg Anesthesia, CUSTOMER SERVICE TELLER As per physicians verb al order 40 mg PROTAMINE given in lab by Anesthesia, CUSTOMER SERVICE TELLER in Right Forearm via Peripheral IV. Ordered by Bessie Broderick. Reason: As per physicians verbal order. PROTAMINE 10/20/2016 5:49:04 PM 10 mg Anesthesia, CUSTOMER SERVICE TELLER As per physicians verb al order 10 mg PROTAMINE given in lab by Anesthesia, CUSTOMER SERVICE TELLER in Right Forearm via Peripheral IV. Ordered by Bessie Broderick. Reason: As per physicians verbal order. Medication (Drip) Medication Time Given Dosage/Unit Concentration/Unit Diluent (ml) Solution HEPARIN DRIP 10/20/2016 4:43:25 PM 1000 units/hr 27951 units 250 D5W 1000 units/hr HEPARIN DRIP given in lab by Anesthesia, CUSTOMER SERVICE TELLER via Peripheral IV. Pump/Drip Flow = 10 ml /hr using [place] [address] units in 250 ml. Ordered by Bessie Broderick. Reason: As per physicians verbal order. IV Solutions 10/20/2016 3:51:09 PM 0 mL (IV) NaCl .9 Patient arrived on IV Solutions given by Vandana Noonan RN in Left Forearm via Peripheral IV. Pump /Drip Flow = 50 ml/hr using NaCl .9. Ordered by Bessie Broderick. Reason: As per physicians verbal order. IV Solutions 10/20/2016 3:52:08 PM 0 mL (IV) NaCl .9 Patient arrived on IV Solutions given by Vandana Noonan RN in Right Forearm via Peripheral IV. Pum p/Drip Flow = 50 ml/hr using NaCl .9. Ordered by Bessie Broderick. Reason: As per physicians verbal order. LEVAQUIN 10/20/2016 4:09:31 PM 100 mL/hr 500 100 NaCl .9 100 mL/hr LEVAQUIN given in lab by FREDRICK Reyes in Right Forearm via Peripheral IV. Pump/Drip Jong w = 0 ml/hr using NaCl .9 with a concentration of 500 in 100 ml. Ordered by Bessie Broderick. Reason: As per physicians verbal order. Initial Case Assessment Cardiovascular HR Rhythm NIBP Chest Pain 60 sr 119/66 0 Edema Present Skin color Skin None Normal Warm Dry Circulatory - Right Pulses Dorsalis Pedis Posterior Tibial 1 1 Scale (0,1,2,3,4,d) Circulatory - Left Pulses Dorsalis Pedis Posterior Tibial 1 1 Scale (0,1,2,3,4,d) Circulatory - Lower Extremities Color Lower Right Color Lower Left Normal Normal Neurological State Oriented to time-place- Alert Moves all extremities person Respiration - General Respiration Rate SpO2 (%) (B/min) 18 100 Chronological Log Time Study Chronological Log 15:39:39 Patient arrived via Bed. 15:39:41 Patient Name, D.O.B, / Armband Verified By R.N. 15:39:47 Consent signed by the physician and the patient and verified by the Lead Pl Sql Developer staff. 15:39:50 Pre-op and post- op instructions given; patient acknowledges understanding of instructions. 15:49:46 Verbal Stimulation=2 Physical Stimulation=2 Airway=2 Respiration=2 TOTAL=8. (0=absent, 1=li mited, 2=present) 15:49:58 Anesthesia at bedside. Assumes care of patient. Deshaun CUSTOMER SERVICE TELLER 15:50:26 Presedation assessment performed by Lead Pl Sql Developer RN. 15:50:30 Patient has been NPO for More than 6Hrs. 15:50:32 Skin Breakdown- none 15:50:38 Patient Warmer Placed on the Table. 15:50:40 Disposable Defibrillator Pads Placed On Patient. 15:50:43 Thomas Prominences Protected 15:50:49 A # 20 IV was noted in the Forearm (left). Grade = 0 15:51:01 A # 20 IV was noted in the Forearm (right). Grade = 0 Patient arrived on IV Solutions given by Vandana Noonan RN in Left Forearm via Peripheral IV . Pump/Drip Flow = 50 15:51:09 ml/hr using NaCl .9. Ordered by Bessie Broderick. Reason: As per physicians verbal order. Patient arrived on IV Solutions given by Vandana Noonan RN in Right Forearm via Peripheral I V. Pump/Drip Flow = 50 15:52:08 ml/hr using NaCl .9. Ordered by Bessie Broderick. Reason: As per physicians verbal order. 15:52:27 History and physical on the chart or being dictated. 15:52:35 Defibrillator disabled. 15:53:25 Table restraints applied according to hospital policy 15:53:31 Bilateral groins prepped with 2% chlorhexidine, and with a 3 min. waiting time. Assessment: Initial Case, HR=60 BPM, Rhythm=sr, CDUK=157/66 mmhg, Chest Pain=0, Edema=None, Col or=Normal, Skin = Warm, Dry Right Pulses: Jenaro Ped=1, Post Tib=1 Left Pulses: Jenaro Ped=1, Post Tib=1 15:55:00 Lower Right Extremities: Color=Normal Lower Left Extremities: Color=Normal Neurological: State=Alert, Ox3, CHU Respiration: Resp=18 B/min, EyA7=383 % 16:00:00 Indwelling uretheral catheter inserted by Vandana Noonan RN in pacer lab. Clear yellow uri ne noted. 100 mL/hr LEVAQUIN given in lab by Anesthesia, CUSTOMER SERVICE TELLER in Right Forearm via Peripheral IV. Pump/Dr ip Flow = 0 ml/hr 16:09:31 using NaCl .9 with a concentration of 500 in 100 ml. Ordered by Bessie Broderick. Reason: As p er physicians verbal order. 16:14:13 MD notified ready. 16:14:34 Immediate Presedation assesment performed by physician. Time Out. Correct patient, procedure, procedure equipment, site and side verified with physicia n present. Time 16:17:43 concurred by MD, individual staff and CUSTOMER SERVICE TELLER. Time Out #2 - Consents verified, patient in correct position, all results are labled and displa yed, safety precautions 16:17:46 taken, antibiotics administered. Time out concurred by MD, individual staff and CUSTOMER SERVICE TELLER in procedu re 16:17:48 Case Start 16:17:51 DEIRDRE begun at bedside. 16:20:38 DEIRDRE completed. 20 mL 1% XYLOCAINE given in lab by Anesthesia, CUSTOMER SERVICE TELLER in Left Groin via Subcutaneous. Ordered by Bessie Broderick. 16:20:48 Reason: For pain. 16:21:01 Vascular access was obtained in the Fem Art (left). 16:21:13 Vascular access was obtained in the Fem Vein (left). 16:21:16 Vascular access was obtained in the Fem Vein (left). 16:21:17 Vascular access was obtained in the Fem Vein (left). A SHEATH, FR4.5 PRELUDE 11CM FR 4.5 was advanced into the Fem Art (right) using the Percutaneou s technique. 16:21:26 connected to 0.9 percent pressure bag 16:21:43 A SHEATH, EPS, FR6 FAST CATH FR 6 was advanced into the Fem Vein (left) using the Percutane ous technique. 16:21:54 A SHEATH, EPS, FR7 FAST CATH FR 7 was advanced into the Fem Vein (left) using the Percutane ous technique. 16:22:04 A SHEATH, FR10 ISRAEL 11CM FR 10 was advanced into the Fem Vein (left) using the Percutaneo us technique. A CATHETER, JSN, QUAD BUNDLE FR 5 was advanced vis Fem Vein (left) and placed in the HIS. Place ment was 16:23:21 visually confirmed under fluoroscopy. A CATHETER, JSN, QUAD BUNDLE FR 5 was advanced vis Fem Vein (left) and placed in the CS. Placem ent was visually 16:23:40 confirmed under fluoroscopy. 20 mL 1% XYLOCAINE given in lab by Anesthesia, CUSTOMER SERVICE TELLER in Right Groin via Subcutaneous. Ordered by Bessie Broderick. 16:24:39 Reason: For pain. 16:24:54 Vascular access was obtained in the Fem Vein (right). 16:24:58 A SHEATH, EPS, FR8 FAST CATH FR 8 was advanced into the Fem Vein (right) using the Percutan eous technique. 16:26:52 Reference ECG taken 16:29:11 CATHETER, ACUNAV FR10 ICE (Mobilinga) FR 10 Was Postioned. A SHEATH, FR8.5 STEERABLE SM 71CM BUNDLE 71CM was exchanged in the Fem Vein (right). This was n ecessary in 16:30:55 order for catheter support. 16:32:12 [place] needle inserted. 16:32:28 Transseptal. 29884 units HEPARIN given in lab by Anesthesia, CUSTOMER SERVICE TELLER in Right Forearm via Peripheral IV. Ordere d by Bessie Broderick. 16:32:39 Reason: As per physicians verbal order. 16:33:03 [place] needle out. A CATHETER, FR7 OPTIMA SPIRAL BUNDLE FR7 was advanced vis Fem Vein (right) and placed in the LA . Placement 16:33:16 was visually confirmed under fluoroscopy. Mapping in progress 16:35:43 Activated Clotting Time Drawn 16:42:50 ACT (Normal Range 90-180) = 313 2000 units HEPARIN given in lab by Anesthesia, CUSTOMER SERVICE TELLER via Peripheral IV. Ordered by Bessie Broderick . Reason: As per 16:43:02 physicians verbal order. 1000 units/hr HEPARIN DRIP given in lab by Anesthesia, CUSTOMER SERVICE TELLER via Peripheral IV. Pump/Drip Flow = 10 ml/hr using 16:43:25 D[place] [address] units in 250 ml. Ordered by Bessie Broderick. Reason: As per lindsay vora verbal order. 16:44:09 Mapping complete. Catheter was removed A CATHETER, TACTICATH ABLAT 65 BUNDLE was advanced vis Fem Vein (right) and placed in the LA. P lacement was 16:44:30 visually confirmed under fluoroscopy. 16:44:43 RF Ablation of the LT. ATRIUM with a CATHETER, TACTICATH ABLAT 65 BUNDLE. 16:49:21 Activated Clotting Time Drawn 16:56:40 ACT (Normal Range 90-180) = 336 2000 units HEPARIN given in lab by Anesthesia, CUSTOMER SERVICE TELLER in Right Forearm via Peripheral IV. Ordered by Bessie Broderick. 17:01:00 Reason: As per physicians verbal order. 17:09:12 Activated Clotting Time Drawn 17:10:08 Catheter was removed A CATHETER, CELSIUS DS, 8MM, F TYPE QUAD FR 7 was advanced vis Fem Vein (right) and placed in t he LA. 17:10:11 Placement was visually confirmed under fluoroscopy. catheter exchanged 17:14:32 ACT (Normal Range 90-180) = 354 17:29:48 ECG rhythm of ~RHYTHMS~ noted. Patient cardioverted at 200 joules. Success synchronized A SHEATH, FR9 ISRAEL 11CM FR 9 was exchanged in the Fem Vein (right). This was necessary in ord er to achieve 17:31:39 vascular hemostasis. 40 mg PROTAMINE given in lab by Anesthesia, CUSTOMER SERVICE TELLER in Right Forearm via Peripheral IV. Ordered by Bessie Broderick. 17:32:54 Reason: As per physicians verbal order. 17:33:42 Ablation procedure complete. 17:34:35 Defibrillator device turned back on . 17:35:08 Ablation procedure performed: AFIB. 17:35:16 EP Procedure was performed. 17:35:40 Catheter(s) removed without difficulty 17:43:33 Activated Clotting Time Drawn 17:44:01 Cine recording checked. 17:48:52 ACT (Normal Range 90-180) = 203 10 mg PROTAMINE given in lab by Anesthesia, CUSTOMER SERVICE TELLER in Right Forearm via Peripheral IV. Ordered b Bessie Deras. 17:49:04 Reason: As per physicians verbal order. 17:55:41 Activated Clotting Time Drawn 17:55:44 ACT (Normal Range 90-180) = 168 Sheath removeds; pressure applied to access sites right groin by Ariel Jacinto. Hemostasis achie ed. Sterile dressings 17:57:31 applied to sites. Arterial sheath left femoral artery pulled and pressue applied by Ciera IRVIN. Hemostasis ach ieved and sterile 17:58:53 dressing applied to site. Sheaths removed; pressure applied to access sites left femoral veins by Ciera IRVIN. Hemostasi s achieved. Dressing 18:06:57 applied to sites. 18:08:00 Holding Area notified of successful intervention. 18:08:58 Bedside Report will be given. 18:09:13 PACU called. Spoke to Ni. 18:09:27 Defibrillator and ground pads removed. Skin intact. 18:26:00 Case End 18:30:00 Patient moved to [facility] and transported to PACU in stable condition. End Study - Contrast Media Used In Study Contrast Total Opened (mL) Total Used (mL) Total Wasted (mL) Unspecified 0 0 0 End Study - Maximum Contrast Load Max Contrast Load (mL) 259.9 End Study - Radiation Exposure Fluoro Time (minutes) 5.7 End Study - Patient Disposition Complications Transferred To Interventional Outcome No Telemetry Bed successful
[2016-10-20] MEDS ORDERED: DO NOT ADM ANY ANTICOAGULANT DRUGS PRN (20:00)
[2016-10-20] MEDS: AMIODARONE 200 MG TAB PO SCH (20:45)
[2016-10-21] VITALS (14 sets, daily range): BP systolic 125–130; BP diastolic 76–78; PULSE 66–84; RESP 16; TEMP 97.4–97.5; O2SAT 100
[2016-10-21 07:04] LABS: BICARBONATE 23.8 MEQ/L (21.0-32.0)
[2016-10-21 07:12] LABS: PROTHROMBIN TIME - PATIENT 10.6 SEC (9.8-11.6)
[2016-10-21 07:24] LABS: HEMATOCRIT 42.5 % (39.0-51.0); MEAN CELL VOLUME 97.9 FL (80.0-100.0); MEAN CORPUSCULAR HEMOGLOBIN 31.8 PG (27.0-34.0); MEAN CORPUSCULAR HGB CONC 32.5 % (32.0-36.0); PLATELET COUNT 220 TH/MM3 (150-450); RED BLOOD COUNT 4.34 MIL/MM3 (4.50-5.90); RED CELL DISTRIBUTION WIDTH 14.1 % (11.6-17.2); REVIEW FLAG FINAL; WHITE BLOOD COUNT 8.7 TH/MM3 (4.0-11.0)
--- NOTE | 2016-10-21 09:04 | PD.CARD.PN ---
Subjective Subjective Remarks Feels okay. Objective Medications Current Medications Medications (Trade) Dose Ordered Sig/Mishel Route Start Time Stop Time Status Last Admin (NS Flush) 2 ml BID IV FLUSH 10/15/16 21:00 10/20/16 20:45 (NS Flush) 2 ml UNSCH PRN IV FLUSH 10/15/16 10:30 (Tylenol) 650 mg Q6H PRN PO 10/15/16 10:30 (Altace) 2.5 mg DAILY PO 10/16/16 09:00 10/20/16 08:23 (Albuterol Neb) 2.5 mg Q2HR NEB PRN NEB 10/15/16 10:45 (Lasix) 40 mg BID PO 10/16/16 21:00 10/20/16 20:45 (Duoneb Neb) 1 ampule Q4HR WHILE AWAKE NEB PRN NEB 10/17/16 11:45 10/18/16 16:10 (Percocet 5-325 Mg) 1 tab Q4H PRN PO 10/20/16 17:45 (Percocet 5-325 Mg) 2 tab Q4H PRN PO 10/20/16 17:45 (Ativan Inj) 0.5 mg UNSCH PRN IV 10/20/16 17:45 10/21/16 17:44 (Atropine Inj) 0.5 mg UNSCH PRN IV 10/20/16 17:45 Sodium Chloride 250 ml @ 500 mls/hr ONCE PRN IV 10/20/16 17:45 10/21/16 17:44 (Reglan Inj) 10 mg Q4H PRN IV 10/20/16 17:45 (Zofran Inj) 4 mg Q4H PRN IV 10/20/16 17:45 (Xylocaine 1% Inj (50 ml)) 10 ml UNSCH PRN INFIL 10/20/16 17:45 10/21/16 17:44 (Cordarone) 400 mg BID PO 10/20/16 21:00 10/25/16 09:01 10/20/16 20:45 (Cordarone) 200 mg DAILY PO 10/26/16 09:00 Miscellaneous Information ALL NURSING DEPARTME... UNSCH PRN .XX 10/20/16 20:00 10/21/16 19:59 Vital Signs / I&O Vital Signs Date Time Temp Pulse Resp B/P (MAP) Pulse Ox O2 Delivery O2 Flow Rate FiO2 10/21/16 08:19 97.4 75 16 130/78 (95) 100 10/21/16 08:19 100 Room Air 10/21/16 06:26 72 10/21/16 05:26 72 10/21/16 04:00 76 10/21/16 03:55 97.5 74 125/76 (92) 100 10/21/16 03:00 74 10/21/16 02:00 72 10/21/16 01:00 68 10/21/16 00:00 66 10/20/16 23:37 97.4 68 128/76 (93) 96 10/20/16 23:00 68 10/20/16 22:00 66 10/20/16 21:00 60 10/20/16 20:00 Room Air 10/20/16 20:00 97.4 68 128/76 (93) 96 10/20/16 20:00 60 10/20/16 19:45 97.7 60 15 115/62 (79) 95 Room Air 10/20/16 19:30 59 15 113/61 (78) 94 Room Air 10/20/16 19:15 57 15 112/63 (79) 99 Nasal Cannula 2 10/20/16 19:00 58 14 110/60 (77) 98 Nasal Cannula 2 10/20/16 19:00 61 10/20/16 18:45 62 13 116/63 (80) 99 Nasal Cannula 3 10/20/16 18:35 97.4 60 12 125/72 (89) 97 Nasal Cannula 3 10/20/16 12:03 98.1 52 18 104/55 (71) 99 I/O 10/20/16 10/20/16 10/20/16 10/21/16 10/21/16 10/21/16 07:00 15:00 23:00 07:00 15:00 23:00 Intake Total 480 ml 900 ml 840 ml Output Total 950 ml 260 ml 1200 ml Balance -470 ml 640 ml -360 ml Intake Oral 480 ml 840 ml Other 900 ml Output Urine Total 950 ml 250 ml 1200 ml Estimated Blood Loss 10 ml # Voids 1 # Bowel Movements 1 Physical Exam GENERAL: Well-nourished, well-developed patient. SKIN: Warm and dry. Groin site soft without bleeding or bruising. HEAD: Normocephalic. EYES: No scleral icterus. No injection or drainage. NECK: Supple, trachea midline. No JVD or lymphadenopathy. CARDIOVASCULAR: Regular rate and rhythm without murmurs, gallops, or rubs. RESPIRATORY: Breath sounds equal bilaterally. No accessory muscle use. GASTROINTESTINAL: Abdomen soft, non-tender, nondistended. EXTREMITIES: No cyanosis, or edema. NEUROLOGICAL: Awake, alert, and oriented x 3. Non-focal. Laboratory Laboratory Tests Test 10/20/16 10:05 10/21/16 06:15 Blood Urea Nitrogen 37 MG/DL 41 MG/DL Creatinine 1.87 MG/DL 2.24 MG/DL Random Glucose 93 MG/DL 161 MG/DL Calcium Level 8.8 MG/DL 8.8 MG/DL Sodium Level 139 MEQ/L 137 MEQ/L Potassium Level 4.3 MEQ/L 4.0 MEQ/L Chloride Level 106 MEQ/L 100 MEQ/L Carbon Dioxide Level 21.9 MEQ/L 23.8 MEQ/L Anion Gap 11 MEQ/L 13 MEQ/L Estimat Glomerular Filtration Rate 37 ML/MIN 30 ML/MIN White Blood Count 8.7 TH/MM3 Red Blood Count 4.34 MIL/MM3 Hemoglobin 13.8 GM/DL Hematocrit 42.5 % Mean Corpuscular Volume 97.9 FL Mean Corpuscular Hemoglobin 31.8 PG Mean Corpuscular Hemoglobin Concent 32.5 % Red Cell Distribution Width 14.1 % Platelet Count 220 TH/MM3 Mean Platelet Volume 7.9 FL Prothrombin Time 10.6 SEC Prothromb Time International Ratio 1.0 RATIO Activated Partial Thromboplast Time 27.0 SEC Assessment and Plan Problem List: (1) Atrial fibrillation and flutter ICD Codes: I48.91 - Unspecified atrial fibrillation; I48.92 - Unspecified atrial flutter Status: Chronic Plan: Normal sinus rhythm overnight status post radiofrequency ablation. (2) Status post ablation of atrial fibrillation ICD Codes: Z98.89 - Status post ablation of atrial fibrillation Status: Acute Plan: Stable for discharge home. Resume eliquis 5 mg by mouth twice a day. Follow-up with Dr. Broderick in 3 weeks per my discussion with him. Marylin Madsen Oct 21, 2016 09:04
--- NOTE | 2016-10-21 09:24 | HHI.FPPN ---
Subjective Remarks Patient seen and examined this morning. No acute events overnight. Patient post- radiofrequency ablation yesterday for atrial fibrillation. Regular rate and rhythm overnight. He reports no complaints/concerns this morning. States he is ready to go home. Denies any chest pain, palpitations. No shortness of breath, abdominal pain, leg pain. (Jethro Sequeira MD, R2) Objective Vitals Vital Signs Date Time Temp Pulse Resp B/P (MAP) Pulse Ox O2 Delivery O2 Flow Rate FiO2 10/21/16 08:19 97.4 75 16 130/78 (95) 100 10/21/16 08:19 100 Room Air 10/21/16 06:26 72 10/21/16 05:26 72 10/21/16 04:00 76 10/21/16 03:55 97.5 74 125/76 (92) 100 10/21/16 03:00 74 10/21/16 02:00 72 10/21/16 01:00 68 10/21/16 00:00 66 10/20/16 23:37 97.4 68 128/76 (93) 96 10/20/16 23:00 68 10/20/16 22:00 66 10/20/16 21:00 60 10/20/16 20:00 Room Air 10/20/16 20:00 97.4 68 128/76 (93) 96 10/20/16 20:00 60 10/20/16 19:45 97.7 60 15 115/62 (79) 95 Room Air 10/20/16 19:30 59 15 113/61 (78) 94 Room Air 10/20/16 19:15 57 15 112/63 (79) 99 Nasal Cannula 2 10/20/16 19:00 58 14 110/60 (77) 98 Nasal Cannula 2 10/20/16 19:00 61 10/20/16 18:45 62 13 116/63 (80) 99 Nasal Cannula 3 10/20/16 18:35 97.4 60 12 125/72 (89) 97 Nasal Cannula 3 10/20/16 12:03 98.1 52 18 104/55 (71) 99 I/O 10/20/16 10/20/16 10/20/16 10/21/16 10/21/16 10/21/16 07:00 15:00 23:00 07:00 15:00 23:00 Intake Total 480 ml 900 ml 840 ml Output Total 950 ml 260 ml 1200 ml Balance -470 ml 640 ml -360 ml Intake Oral 480 ml 840 ml Other 900 ml Output Urine Total 950 ml 250 ml 1200 ml Estimated Blood Loss 10 ml # Voids 1 # Bowel Movements 1 (Jethro Sequeira MD, R2) Result Diagram: 10/21/16 0615 10/21/1615 Objective Remarks GENERAL: Sitting up in bed, no distress CARDIOVASCULAR: RRR, no murmurs, rubs, or gallops RESPIRATORY: CTAB GASTROINTESTINAL: Abdomen soft, non-tender, nondistended. EXTREMITIES: No cyanosis, or edema. NEUROLOGICAL: Awake, alert. Non-focal. (Jethro Sequeira MD, R2) A/P Assessment and Plan 60-year-old white male with a past medical history of atrial fibrillation admitted for symptomatic palpitations. Discharge Planning Cleared by cardiology today. Will need to follow up with cardiology and his PCP after discharge. (Jethro Sequeira MD, R2) Attending Attestation Patient seen and examined. Case reviewed and discussed Agree with plan of care as discussed with me and documented in the resident note. (Leanna Soto MD) Problem List: (1) Atrial fibrillation and flutter ICD Codes: I48.91 - Unspecified atrial fibrillation; I48.92 - Unspecified atrial flutter Status: Chronic Plan: Initial EKG showed atrial fibrillation with flutter, rate of 78 bpm. ACS rule out negative AICD investigation showed no abnormalities -Consulted cardiology, appreciate recommendations -S/p Ablation and EPS study 10/20/16 -Started Amiodarone 400mg BID for 5 days, then 200mg daily -F/u with Dr. Broderick in 3 weeks -Ramipril 2.5mg daily -Restart Eliquis 5mg BID (2) CHF (congestive heart failure) ICD Codes: I50.9 - CHF (congestive heart failure) Status: Chronic Plan: Echocardiogram (10/16): EF 35-40% - Continue at home Ramipril 2.5 mg by mouth daily - Continue PO Lasix 40 mg bid (3) Chronic kidney disease ICD Codes: N18.9 - Chronic kidney disease, unspecified Status: Chronic Plan: Estimated GFR about 37 with elevated BUN and creatinine. Documented at Stage 3 since 12/2013. Elevated to 41 this morning, s/p cath and contrast - Repeat BMP outpatient -Will mail order for BNP -Called to inform pt -F/u in our clinic with 1 time hospital f/u - Renally dose medications - Continue Ramipril for renal protection (4) FEN Status: Acute Plan: Fluids: Tolerating PO Electrolytes: Monitor and replace as needed Nutrition: heart healthy diet DVT prophylaxis: Eliquis on hold for procedure (Jethro Sequeira MD, R2) Problem Qualifiers (1) CHF (congestive heart failure): Qualified Codes: I50.9 - Heart failure, unspecified (2) Chronic kidney disease: Qualified Codes: N18.3 - Chronic kidney disease, stage 3 (moderate) Jethro Sequeira MD, R2 Oct 21, 2016 09:24 Leanna Soto MD Oct 23, 2016 11:10
--- NOTE | 2016-10-21 09:26 | HHI.DCPOC ---
Discharge Care Plan Diagnosis: (1) Status post ablation of atrial fibrillation (2) S/P implantation of automatic cardioverter/defibrillator (AICD) (3) Chronic kidney disease, stage 2, mildly decreased GFR (4) COPD (chronic obstructive pulmonary disease) Goals to Promote Your Health * To prevent worsening of your condition and complications * To maintain your health at the optimal level Directions to Meet Your Goals Take your medications as prescribed Follow your dietary instruction Follow activity as directed Keep your appointments as scheduled Take your immunizations and boosters as scheduled If your symptoms worsen call your PCP, if no PCP go to Urgent Care Center or Emergency Room Smoking is Dangerous to Your Health. Avoid second hand smoke Call the 24-hour hour crisis hotline for domestic abuse at Jethro Sequeira MD, R2 Oct 21, 2016 09:26
[2016-10-21] MEDS ORDERED: AMIO200T PO ×2 (09:33)
--- NOTE | 2016-10-21 09:34 | HHI.DS ---
Discharge Summary Admission Date Oct 17, 2016 at 11:38 Discharge Date: Oct 21, 2016 Admitting Diagnosis generalized weakness, A. fib with flutter, palpitation (1) Atrial fibrillation and flutter Diagnosis: Principal Plan: Initial EKG showed atrial fibrillation with flutter, rate of 78 bpm. ACS rule out negative AICD investigation showed no abnormalities -Consulted cardiology, appreciate recommendations -Started cardizem 60mg q8H -Ablation and EPS study this afternoon -Metoprolol 100 mg by mouth twice a day -Ramipril 2.5mg daily -Eliquis 5mg BID, on hold for procedure ICD Codes: I48.91 - Unspecified atrial fibrillation; I48.92 - Unspecified atrial flutter Status: Chronic (2) CHF (congestive heart failure) Diagnosis: Principal Plan: Echocardiogram (10/16): EF 35-40% - Continue at home Ramipril 2.5 mg by mouth daily - Metoprolol tartrate 100 mg bid - Continue PO Lasix 40 mg bid ICD Codes: I50.9 - CHF (congestive heart failure) Status: Chronic (3) Chronic kidney disease Diagnosis: Secondary Plan: Estimated GFR about 37 with elevated BUN and creatinine. Documented at Stage 3 since 12/2013. - Repeat BNP outpatient -Will mail order for BNP -Called to inform pt -F/u in our clinic with 1 time hospital f/u - Renally dose medications - Continue Ramipril for renal protection ICD Codes: N18.9 - Chronic kidney disease, unspecified Status: Chronic (4) FEN Diagnosis: Secondary Plan: Fluids: NPO for procedure Electrolytes: Monitor and replace as needed Nutrition: NPO for procedure, then resume heart healthy diet DVT prophylaxis: SCDs/Eliquis on hold for procedure Status: Acute Consultants Cardiology Procedures Radiofrequency ablation on 10/20/16 Brief History Mr. Ngo is a 60-year-old white male with a past medical history of atrial fibrillation presenting to the ED for heart palpitations. He states that a few days ago his heart started racing and skipping a beat. He also started feeling run down and not like himself. He felt like he had a cold. Last night his still comes had gotten worse. He felt like his heart was racing on and off. He states that he is used to his heart beating funny, but this felt different. Therefore, he decided to come to the ED. He experienced this type of heart problem back in August when he was hyponatremic. 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 Broderick, who put him on digoxin and Eliquis. He was initially diagnosed with atrial fibrillation 3 years ago and had an ablation done. They also implanted a defibrillator. His defibrillator has never gone off. No prior MIs. No CP, no SOB, has been feeling fatigued, no loss of appetite. No fever/chills CBC/BMP: 10/21/16 0615 10/21/16 0615 Significant Findings Laboratory Tests Test 10/18/16 09:57 10/19/16 05:24 10/20/16 10:05 10/21/16 06:15 Blood Urea Nitrogen 24 MG/DL (7-18) 28 MG/DL (7-18) 37 MG/DL (7-18) 41 MG/DL (7-18) Creatinine 1.70 MG/DL (0.60-1.30) 1.65 MG/DL (0.60-1.30) 1.87 MG/DL (0.60-1.30) 2.24 MG/DL (0.60-1.30) Random Glucose 108 MG/DL (74-106) 161 MG/DL (74-106) Estimat Glomerular Filtration Rate 42 ML/MIN (>89) 43 ML/MIN (>89) 37 ML/MIN (>89) 30 ML/MIN (>89) Red Blood Count 4.34 MIL/MM3 (4.50-5.90) Imaging Last Impressions Chest X-Ray 10/15/16 0732 Signed Impressions: Service Date/Time: September 07:43 - CONCLUSION: 1. Chronic appearing interstitial changes. No acute abnormality. Jakob Aden MD PE at Discharge GENERAL: Sitting up in bed, no distress CARDIOVASCULAR: RRR, no murmurs, rubs, or gallops RESPIRATORY: CTAB GASTROINTESTINAL: Abdomen soft, non-tender, nondistended. EXTREMITIES: No cyanosis, or edema. NEUROLOGICAL: Awake, alert. Non-focal. Hospital Course Patient is a 52-year-old male with history of atrial fibrillation who presents with symptomatic heart palpitations. Patient was admitted to manage his uncontrolled atrial fibrillation. Rate remained controlled. Cardiology was consulted, who recommended a radiofrequency ablation and EPS study. This procedure was performed, without difficulty. Patient remained rate and rhythm controlled after procedure. Patient was discharged on his home Eliquis, Ramipril , and amiodarone. Pt had elevated BUN/Cr throughout hospitalization, indicative of stage 3 kidney disease. BUN elevated after contrast and procedure. BMP to be repeated in 2-3 days outpatient. Pt to follow-up with Dr. Broderick in 3 weeks. Pt Condition on Discharge: Stable Discharge Disposition: Discharge Home Discharge Instructions DIET: Follow Instructions for: Heart Healthy Diet Activities you can perform: Regular-No Restrictions Follow up Referrals: Cardiology - 3 Weeks with Bessie Broderick MD PCP Follow-up - 1 Week New Orders: BNP - 2-3 Days New Medications: Amiodarone (Amiodarone) 200 Mg Tab 200 MG PO DAILY, #30 TAB Amiodarone (Amiodarone) 200 Mg Tab 400 MG PO BID, #9 TAB 400mg BID for 5 days, then 200mg daily Continued Medications: Apixaban (Eliquis) 5 Mg Tab 5 MG PO BID for Blood Clot Prevention, #60 TAB 0 Refills Aspirin (Aspirin) 325 Mg Tab 325 MG PO DAILY, #30 TAB 0 Refills Furosemide (Lasix) 40 Mg Tab 40 MG PO BID, #60 TAB 0 Refills Ramipril (Ramipril) 2.5 Mg Cap 2.5 MG PO DAILY, #30 CAP 0 Refills Discontinued Medications: Digoxin (Digoxin) 0.125 Mg Tab 0.125 MG PO DAILY for Regulate Heart Beat, #30 TAB 0 Refills Metoprolol Tartrate (Metoprolol Tartrate) 100 Mg Tab 100 MG PO BID, #60 TAB 0 Refills Jethro Sequeira MD, R2 Oct 21, 2016 09:34
[2016-10-21] MEDS: AMIODARONE 200 MG TAB PO SCH (09:52)
[2016-10-21] MEDS: SODIUM CHLORIDE 0.9% FLUSH 10 ML FLUSH IV FLUSH SCH (09:52)
[2016-10-21] MEDS: RAMIPRIL 2.5 MG CAP PO SCH (09:53)
[2016-10-21] MEDS: FUROSEMIDE 40 MG TAB PO SCH (09:53)
[2016-10-21] MEDS ORDERED: APIXABAN 5 MG TABLET PO SCH (10:00)
--- NOTE | 2016-10-21 17:10 | EKG ---
Date Performed: 10/20/2016 Time Performed: 19:08:16 PTAGE: 60 years EKG: SINUS BRADYCARDIA Compared to previous tracing, the patient is no longer in atrial flutter BORDERLINE ECG PREVIOUS TRACING : 10/15/2016 19.52 DOCTOR: Sarai Boss Interpretating Date/Time 10/21/2016 17:05:11
--- NOTE | 2016-10-21 17:10 | EKG ---
Date Performed: 10/21/2016 Time Performed: 03:21:14 PTAGE: 60 years EKG: Sinus rhythm Compared to prior tracing no significant change Normal ECG PREVIOUS TRACING : 10/20/2016 19.08 DOCTOR: Sarai Boss Interpretating Date/Time 10/21/2016 17:05:19
[2016-10-26] MEDS ORDERED: AMIODARONE 200 MG TAB PO SCH (09:00)
--- NOTE | 2016-10-26 12:31 | ECHRPT ---
Indication: CONCLUSIONS No clot seen in left atrial, nor left atrial appendage. Moderale left atrial enlargement. Adequate left ventricular systolic function. Ejection fraction around 50%. BP: / HR: Rhythm: Technical Quality: Medications Administered by anesthesiology Complications none Proc. Components FINDINGS LEFT VENTRICLE Normal left ventricular size and wall thickness. The left ventricular systolic function is normal wi th an estimated ejection fraction in the range of 50-55%. Left ventricular diastolic function parameters a re normal. RIGHT VENTRICLE Normal right ventricular size and systolic function. LEFT ATRIUM Moderate left atrial enlargement RIGHT ATRIUM The right atrial size is normal. ATRIAL APPENDAGES No clot seen ATRIAL SEPTUM Normal atrial septal thickness without atrial level shunting by limited color doppler interrogation. AORTA The aortic root and proximal ascending aorta are normal in size on limited imaging. MITRAL VALVE Structurally normal mitral valve. No mitral valve stenosis or regurgitation. AORTIC VALVE Trileaflet aortic valve. No aortic valve stenosis or regurgitation. TRICUSPID VALVE Structurally normal tricuspid valve. No tricuspid valve stenosis or regurgitation. VESSELS The inferior vena cava is normal in size. PULMONARY VALVE The pulmonary valve is not well visualized. PERICADIUM No pericardial effusion. Bessie Broderick MD (Electronically Signed) Final Date:26 October 2016 12:30
--- NOTE | 2016-11-01 21:35 | PD.CARD ---
Atrial Fibrillation Ablation PROCEDURE DATE: Oct 20, 2016 PROCEDURES PERFORMED: 1. Electrophysiology study on Isuprel infusion 2. CS cannulation 3. 3-D mapping 4. Transseptal approach 5. Right and left heart catheterization 6. Intracardiac echo 7. Radiofrequency ablation of atrial fibrillation 8. Pulmonary vein isolation 9. Posterior wall ablation 10. Mitral valve isolation 11. Mitral line creation 12. Left atrial tachycardia ablation 13. Roof line creation 14. Floor line creation 15. Anterior wall ablation 16. Cardioversion INDICATIONS FOR THE PROCEDURE Mr. Ngo is a 60-year-old male with atrial fibrillation, very symptomatic despite multiple medications, on anticoagulation referred for electrophysiology study and ablation. The risks, the nature and the benefits of the procedure were clearly stated to him. The risks include pneumothorax, cardiac perforation, stroke, need for open heart surgery and even . The patient understood and agreed to proceed. DESCRIPTION OF THE PROCEDURE IN DETAIL As written informed consent was obtained prior to esophageal echocardiogram, the patient was kept on the table where he was prepped and draped in the usual sterile fashion. Conscious sedation was initiated and maintained throughout the procedure by the anesthesiologist. Once sedation was verified, the right and left inguinal areas were anesthetized with 2% Xylocaine. Using modified Seldinger technique, the left femoral vein was cannulated on three occasions, three guidewires were advanced. Over the wire a 6, 7 and a 10-Anguillan Hemaquet were advanced. Then the left femoral artery was cannulated on one occasion, one guidewire was advanced. Over the wire a 4-Anguillan Hemaquet was advanced. Then the right femoral vein was cannulated on one occasion, one guidewire was advanced. Over the wire a 8-Anguillan Hemaquet was advanced. Then under fluoroscopic guidance through the 6 and 7-Anguillan Hemaquet, two 5-Anguillan Zach curved quadripolar electrophysiology catheters were advanced and placed around the His as well as coronary sinus. Basic interval was measured. The patient was in atrial fibrillation. Through the 10-Anguillan Hemaquet, a Cordis Graff AcuNav intracardiac echo catheter was advanced and placed at the right atrium. Multiple view was obtained. There is pericardial effusion, pulmonary vein was seen, atrial septal was visualized. Then the 8-Anguillan Hemaquet in the right femoral vein was exchanged for Agilis transseptal sheath that was placed all the way to the superior vena cava. Through the sheath a Benson needle was advanced, then the sheath, the dilator and the needle were progressed until foci engaged. Once engaged, the needle was advanced. RF was delivered for 2 seconds. I was able to cross into the left atrium. Once the needle crossed, the dilator was advanced. Once the dilator crossed, the sheath was advanced. Once the sheath crossed, the dilator and the needle were removed. The patient already received 10,000 units of heparin. The goal is to keep an ACT around 350 during ablation. Then through the sheath a [employer]. Kenny 20 pulse circumferential catheter was advanced. Using The [employer] endocardial solution mapping system, a two-dimensional configuration of the left atrium was obtained. Points were taken at the left superior and inferior veins, right superior and inferior veins, mitral valve, and appendages. Then through the sheath a [employer]. [place] TactiCath 65cm 3.5mm irrigated tipped mapping and radiofrequency ablation catheter was advanced. Esophageal probe was placed temperature monitoring during ablation. When it increased to 0.5 degrees Celsius above baseline, I moved to a different area of the atrium. First I did isolate the left superior and inferior vein. I did make a big [place] around the veins. Posterior was ablated. Then a roof line was created, a floor line was created, a mitral line was isolated, then the mitral valve was isolated. At that point the patient was in left atrial tachycardia. I did create a line from the floor to the roof area, passing by the left atrial appendage. Then the right superior and inferior veins were isolated. I did remap the atrium. There is no significant signal in the atrium. At this point I decided to proceed with cardioversion. A 200 sync biphasic joule was delivered that converted the patient into sinus rhythm. At that point I did advance the circumferential catheter again into the vein. There was no signal into the vein, pacing from the vein showed no conduction to the atrium. Isuprel infusion was initiated at 20 mcg for around 10 minutes. No tachyarrhythmia was induced, post Isuprel no tachyarrhythmia was induced. At that point the procedure was complete. All catheters were removed, atrial septal sheath was exchanged for 9-Anguillan Hemaquet, intracardiac echo showed no pericardial effusion. There is still good flow in the pulmonary vein. The patient is going to be transferred to the recovery room. No incident report. The patient tolerated the procedure. Blood loss was minimal. FINDINGS 1. Electrocardiogram: At baseline the patient was in atrial fibrillation, post procedure the patient was in sinus rhythm. 2. Basic interval: Base cycle length was around 620 Post ablation she was around 1020 milliseconds. AH at 96 and HV at 60 milliseconds. 3. Tachyarrhythmia: Atrial fibrillation was mapped and ablated. Atrial tachycardia was ablated. The ablation was successful. CONCLUSION Successful electrophysiology study, mapping, radiofrequency ablation of atrial fibrillation, left atrial tachycardia, pulmonary vein isolation, posterior ablation, mitral valve isolation, mitral line creation, roof line creation, floor line creation, left atrial tachycardia, and cardioversion. COMMENTS AND RECOMMENDATIONS The patient is going to be transferred to the telemetry unit. Will be observed and when stable can be discharged home. Bessie Broderick MD Nov 01, 2016 21:35
== END 2016-10-21 11:27 | disposition home or self-care (01) | DRG 274 ==
LOC: NEPC 07:16 → NEDA 09:33 → NEPHCDU 12:42 → OBSVTOIN 10-17 11:38 → N04B 10-17 16:20 → HCIS 10-20 18:37 → HCIN 10-20 19:54
PROVIDERS: ADMIT Family Medicine; ATTEND Family Medicine
PROC: 4A023FZ Measurement of Cardiac Rhythm, Percutaneous Approach (ICD-10-PCS; 2016-10-20)
PROC: 4A0234Z Measurement of Cardiac Electrical Activity, Percutaneous Approach (ICD-10-PCS; 2016-10-20)
PROC: 02K83ZZ Map Conduction Mechanism, Percutaneous Approach (ICD-10-PCS; 2016-10-20)
PROC: 4A023N8 Measurement of Cardiac Sampling and Pressure, Bilateral, Percutaneous Approach (ICD-10-PCS; 2016-10-20)
PROC: 5A2204Z Restoration of Cardiac Rhythm, Single (ICD-10-PCS; 2016-10-20)
PROC: B244ZZZ Ultrasonography of Right Heart (ICD-10-PCS; 2016-10-20)
PROC: 02583ZZ Destruction of Conduction Mechanism, Percutaneous Approach (ICD-10-PCS; principal; 2016-10-20 16:00)
DX: I48.2 Chronic atrial fibrillation (principal); I31.3 Pericardial effusion (noninflammatory); I13.0 Hypertensive heart and chronic kidney disease with heart failure and stage 1 through stage 4 chronic kidney disease, or unspecified chronic kidney disease; I50.9 Heart failure, unspecified; N18.3 Chronic kidney disease, stage 3 (moderate); I47.1 Supraventricular tachycardia; I48.92 Unspecified atrial flutter; F12.90 Cannabis use, unspecified, uncomplicated; J44.9 Chronic obstructive pulmonary disease, unspecified; F17.200 Nicotine dependence, unspecified, uncomplicated; Z79.01 Long term (current) use of anticoagulants; Z95.810 Presence of automatic (implantable) cardiac defibrillator
CPT/HCPCS: 71010; 76937; 80048; 80053; 80061; 80162; 82550; 82552; 83735; 84439; 84443; 84484; 85002; 85025; 85027; 85610; 85730; 92960; 93005; 93306; 93312; 93320; 93325; 93613; 93623; 93656; 93662; 94640; 94664; 99285; C1730; C1731; C1732; C1759; C1766; C2630; G0378; J1170; J1644; J1956; J2720; J3010